=== PATIENT | female | born 1955 | race Caucasian/White ===

== ENCOUNTER 2018-09-26 07:51 | Inpatient (IN) | payer OTHER ==
--- NOTE | 2018-09-19 19:12 | HP ---
AMENDED REPORT NOW INCLUDES DESIGNATED COSIGNER HISTORY AND PHYSICAL: DATE OF ADMISSION/SURGERY: 09/26/18 DATE OF OFFICE VISIT: 09/19/18 ATTENDING SURGEON: Dr. Bennett.* (DICTATED BY JAYASHREE SALOMON) PROCEDURE: Right total knee arthroplasty. CHIEF COMPLAINT: Right knee pain. HISTORY OF PRESENT ILLNESS: Ms. Aquino is a 63-year-old female who has chronic history of right knee pain. She had a meniscal repair in November 2016. Since then, she has had significant indeterminate pain. Today she reports the pain as a 6/10 in the right knee. She is having difficulty standing and difficulty walking even half a block. She does take 2 hydrocodone per day plus anti-inflammatories. She has multiple reports of falls because the knee is giving out on her. At this point, she would like to proceed with surgery. PAST MEDICAL HISTORY: Osteoarthritis, mitral valve disorder, TIA, anxiety, [place], coronary artery disease, hypothyroidism, and COPD. PAST SURGICAL HISTORY: Right knee arthroscopy, partial thyroidectomy, appendectomy, tubal ligation. MEDICATIONS: 1. Zolpidem tartrate 5 mg 1 p.o. before bed. 2. Escitalopram oxalate 20 mg 1 p.o. daily. 3. Bupropion hydrochloride ER 300 mg 1 p.o. daily. 4. Clonazepam 1 mg 1 p.o. 3 times a day. 5. Ventolin HFA 108 mcg 1 to 2 inhalations every 4 hours as needed. 6. Amlodipine 5 mg 1 p.o. daily. 7. Symbicort 160/4.5 mcg 2 puffs by mouth twice a day. 8. Hydrocodone/acetaminophen 5/325 mg 1 p.o. every 6 hours as needed for pain. 9. Ipratropium bromide/albuterol sulfate 0.5/2.5 mcg per 3 mL 1 vial in nebulizer 3 times a day as needed. 10. Triamcinolone acetonide 0.1% apply thin film twice daily. 11. Tylenol extra strength 500 mg 2 p.o. as needed for pain. ALLERGIES: ZITHROMAX, SULFA ANTIBIOTICS, ESTROGENS, and LATEX. FAMILY HISTORY: Positive for diabetes, coronary artery disease, hypertension, stroke, scleroderma, and breast cancer. SOCIAL HISTORY: She is not currently working. She is applying for disability. She lives alone. She uses occasional glass of wine. She denies any tobacco or recreational drug use. Right hand dominant. REVIEW OF SYSTEMS: General: Negative for fevers, chills, night sweats, unexplained weight loss or gain. No known anesthesia problems. HEENT: Negative for headache, lightheadedness, syncopal episodes, visual changes. Integumentary: Negative for abrasions, lesions, open wounds. Cardiothoracic: Negative for hypertension, chest pain, palpitations, edema. Respiratory: Positive for chronic cough. Negative for shortness breath with exertion or wheezing. GI: Negative for nausea, vomiting, diarrhea, constipation, or GERD. : Negative for nocturia, urinary frequency, urgency, history of UTIs, kidney problems. Musculoskeletal: Positive for right knee pain. Negative for chronic or intermittent back pain or history of fractures. Neurologic: Positive for history of stroke, poor balance, anxiety, depression. Negative for numbness, tingling, or history of seizure. Endocrine: Positive for thyroid issues. Negative for diabetes. Hematologic: Negative for easy bruising, anemia , bleeding disorders, history of DVT. ID: Negative for history of MRSA infection, hep C, or HIV. PHYSICAL EXAMINATION GENERAL: Well-developed, well-nourished 63-year-old female, in no acute distress. VITAL SIGNS: Height 62 inches, weight 153 pounds. Pulse 70, BP 132/82, respirations 18, temperature 98.4, pain 7, BMI 27.8. HEENT: Normocephalic, atraumatic. PERRLA. Extraocular movements intact. Throat is clear. NECK: Supple. No palpable lymph nodes. PULMONARY: Lungs are clear to auscultation bilaterally. No wheezes, rales, or rhonchi. CARDIO: Regular rate and rhythm. S1 and S2 normal. No murmurs, rubs, or gallops. No edema. ABDOMEN: Positive bowel sounds, soft and nontender. NEUROLOGIC: A and O x3. Cranial nerves II through XII intact. Sensation to light touch is intact. MUSCULOSKELETAL: Right lower extremity: The patient's gait is antalgic, favoring the right knee. The patient's skin is intact without abrasions or open wounds. No palpable masses or lymph nodes. There is moderate effusion at the knee joint with extreme tenderness to palpation along the medial and lateral joint line. She has 20 to 100 degrees of flexion today with severe pain. She has significant quadriceps atrophy. No varus or valgus instability. Positive Apley's and Pamela's. No distal edema, varicosities, or hyperreflexia. She has 5/5 ankle dorsiflexion and plantarflexion strength. Full sensation to light touch in all nerve distributions and 2+ palpable DP pulse. DIAGNOSTIC STUDIES: Radiographs at multiple views of the patient's right knee show medial [id number] contact. There is significant tricompartmental osteophyte formation, subchondral sclerosis and joint space narrowing. IMPRESSION: Right knee severe osteoarthritis. PLAN: The patient is scheduled to undergo a right total knee arthroplasty with Dr. Bennett on 09/26/18. Dr. Bennett discussed the procedure as well as the risks and benefits with the patient and she agrees to proceed. She will return to the office 10 to 14 days postop for followup and suture removal. Upon discharge from the hospital, she will have a prescription e-scribed to her pharmacy for postoperative pain management. JAYASHREE OROZCO [id number]/[facility] #: [id number] BOB
[~2018-09-26 07:51] MED LIST: Buffered Lidocaine 1% SYRIN* 1 ML/SYRINGE INTRADERM ONE; Famotidine IV* 10 MG/ML 2 ML (20 mg) IV ONE; Gabapentin CAP(*) 300 MG PO ONE; Lactated Ringers 1000 ML Bag* 1,000 ML IV SCH
--- OUTSIDE RECORDS SUMMARY | 2018-09-26 07:55 | XMS REPORT | Continuity of Care Document ---
:1955 External Reference #:[id number] Author Name Tea Mirza Care Team Providers Name Role Phone Sveta Patel MD Primary Care Physician Unavailable Payers Date Identification Numbers Payment Provider Subscriber Policy Number: [id number] [facility] Gay Thompson Steven PayID: [id number] [address] [place] [address] Onset: 2006 Policy Number: [id number] [facility] Gay Jay Steven Group Number: [id number] [place]/o [place] Group Name: [id number] [address] PayID: [id number] [place] [address] Expires: 2015 Policy Number: [id number] [facility] Gay Harris PayID: [id number] [address] [address] [place] [address] PayID: [id number] Controverted Gay Harris Advance Directives Type Date Description Status Comment Other Directive 01/01/2017 [facility] Care Proxy Current and Verified Problems Active Problems Provider Date Anxiety state Sugar Patrick M.D. Onset: 11/02/2015 Transient cerebral ischemia Roldan Romano M.D. Onset: 11/02/2015 Mitral valve disorder Roldan Romano M.D. Onset: 11/02/2015 Pain in limb Lindsay Bennett M.D. Onset: 05/07/2016 Hamstring injury Lindsay Bennett M.D. Onset: 05/07/2016 Localized, primary osteoarthritis Lindsay Bennett M.D. Onset: 05/07/2016 Ganglion of shoulder Adarsh Sims MD Onset: 04/25/2018 Localized, secondary osteoarthritis of Adarsh Sims MD Onset: 04/25/2018 the shoulder region Family History Date Family Member(s) Observation Comments General Diabetes General Parkinson's Disease General Ovarian Cancer General Breast Cancer General Heart Disease General Hypertension General Stroke General Rheumatoid Arthritis General raynauds General Crest Father Stroke Multiple Father [place] (Age 45) Father Diabetes Type II Age 84 Mother due to scleroderma, () - Age 57 mesothelioma Siblings 3 1 Brother - age 27 murdered 1 Sister - TBI, global Age 61 1 Brother - TBI, unilateral, blind in an eye and deaf in 1 ear, Valve Disease, mitral valve replacement (age 54). Age 56 Social History Type Date Description Comments Sex Unknown Marital Status Lives With Alone Occupation Disabled ETOH Use Currently consumes alcohol 0 - 1 glasses Recreational Drug Use Never Used Drugs Tobacco Use Start: Unknown Light tobacco smoker (10 or fewer cigarettes/day) Smoking Status Reviewed: 09/17/18 Light tobacco smoker (10 or fewer cigarettes/day) Exercise Type/Frequency Exercises rarely Allergies, Adverse Reactions, Alerts Active Allergies Reaction Severity Comments Date Zithromax lorrie syndrome 10/13/2015 Sulfa Antibiotics rash 10/13/2015 Estrogens rash 10/13/2015 Medications Active Medications SIG Qnty Indications Ordering Date Provider Zolpidem Tartrate One po hs prn 30tabs G47.00 Siena Marsha, 09/02/2018 5mg sleep N.P. Tablets Cane use for ambulation 1units M25.561 Lindsay Bennett, 07/25/2018 Misc - r knee pain MObey Escitalopram Oxalate 1 by mouth every 30tabs F32.9 Siena Varn, 2018 day N.P. 20mg Tablets Bupropion 1 by mouth every 30tabs F32.9 Siena Varn, 06/03/2018 Hydrochloride ER (XL) day N.P. 300mg Tablets ER 24HR Clonazepam take 1 by mouth 60tabs F32.9 Siena Varn, 04/25/2018 1mg Tablets three times a day N.P. Ventolin HFA 1 to 2 inhalations 18units J45.31 Siena Varиван, 03/31/2018 every 4 hours as N.P. 108(90Base) mcg/Act needed Aerosol Amlodipine Besylate 1 by mouth every 90tabs I10 Siena Joиван, 03/31/2018 5mg day N.P. Tablets Symbicort 2 puffs by mouth 18gm J44.1 Siena Joиван, 12/19/2017 twice a day N.P. 160-4.5mcg/Act Aerosol Hydrocodone-Acetamino one tablet by 60tabs M25.561 Siena Joиван, 2017 phen mouth every 6 N.P. 5-325mg Tablets hours as needed for pain Ipratropium 1 vial in 180ml J44.1 Siena Joиван, 12/12/2017 [place]/Albuterol nebulizer three N.P. Sulfate times a day as needed for asthma 0.5-2.5(3)mg/3ML Solution Nebulizer use three times a 1units J44.1 Siena Joиван, 12/12/2017 Device day as needed N.P. Triamcinolone apply thin film 45units H60.541 Siena Joиван, 10/13/2015 Acetonide twice daily N.P. 0.1% Cream Tylenol Extra 2 by mouth as Unknown Strength needed 500mg Tablets History Medications Gabapentin 1 by mouth at 30caps G47.00 Siena Joиван, 07/25/2018 - 300mg Capsules bedtime N.P. 08/25/2018 Escitalopram Oxalate 1 by mouth 30tabs F32.9 Siena Joиван, 04/25/2018 - 10mg every day N.P. 06/17/2018 Tablets Alprazolam one by mouth up 20tabs Siena Joиван, 04/08/2018 - 0.25mg Tablets to three times N.P. 04/15/2018 daily as needed for anxiety Bupropion HCL ER (XL) 1 by mouth 30tabs F32.9 Siena Joиван, 03/31/2018 - every day N.P. 06/03/2018 150mg Tablets ER 24HR Clonazepam 1 tablet tid 30tabs F32.9 Siena Joиван, 03/31/2018 - 0.5mg Tablets prn anxiety N.P. 04/08/2018 Prednisone 4 tablets by 40tabs J45.31 Siena Joиван, 03/31/2018 - 10mg Tablets mouth for 4 N.P. 04/16/2018 days 3 tablets by mouth for 4 days 2 tablets by mouth for 4 days 1 tablet by mouth for 4 days Amoxicillin/Clavulanat one tablet by 20tabs J45.31 Siena Joиван, 2018 - e Potassium mouth twice N.P. 04/10/2018 875-125mg daily for 10 Tablets days Doxycycline Hyclate 1 po bid x 10 20tabs J44.1 Siena Marsha, 12/12/2017 - 100mg days N.P. 12/22/2017 Tablets Prednisone 4 tablets by 40tabs J44.1 Siena Larson, 12/12/2017 - 10mg Tablets mouth for 4 N.P. 12/28/2017 days 3 tablets by mouth for 4 days 2 tablets by mouth for 4 days 1 tablet by mouth for 4 days Ramipril 1 by mouth 30caps I10 Siena Larson, 02/05/2017 - 10mg Capsules every day N.P. 12/19/2017 Amlodipine Besylate 1 by mouth 30tabs I10 Siena Larson, 01/01/2017 - 5mg every day N.P. 02/05/2017 Tablets Atorvastatin Calcium take 1 tablet 90tabs E78.00 Siena Larson, 2016 - 20mg by mouth at N.P. 12/19/2017 Tablets bedtime Ranitidine HCL take one tablet 60tabs R11.2 Siena Larson, 09/21/2016 - 150mg by mouth twice N.P. 12/19/2017 Tablets a day Ondansetron HCL one by mouth 30tabs R11.2 Siena Larson, 09/21/2016 - 4mg every 8 hours N.P. 12/19/2017 Tablets as needed for nausea Vicodin take 1 by mouth 30tabs M25.50 James Thomas NP 09/21/2016 - 5-300mg Tablets every 8 hours 12/19/2017 as needed Voltaren apply 4 Gm to 100units Siena Larson, 07/24/2016 - 1% Gel affected area N.P. 09/21/2016 four times daily prn pain Chantix Starting Month take as 30tabs F17.210 Siena Marsha, 07/17/2016 - Jeff directed (0.5 N.P. 03/31/2018 0.5mg X 11 & 1 mg X mg by mouth 42 Tablets daily x3 days, 0.5 mg twice a day x 4 days, then 1 mg twice a day up to three months) Flector apply 1 patch 60units M17.11 Siena Larson, 07/17/2016 - 1.3% Patches twice a day N.P. 07/24/2016 Omeprazole 1 by mouth 30tabs Siena Larson, 06/12/2016 - 20mg Tablets every day N.P. 06/19/2016 Tramadol HCL 1 tab twice a 40tabs Siena Larson, 06/08/2016 - 50mg Tablets day as needed N.P. 07/24/2016 for pain Cyclobenzaprine HCL take one tablet 40tabs M25.561 Siena Larson, 2016 - 10mg by mouth every N.P. 12/19/2017 Tablets 8 hours as needed for muscle spasms, maximum daily dose=3 Augmentin one by mouth 20tabs Siena Larson, 04/24/2016 - 875-125mg every 12 hours N.P. 05/04/2016 Tablets for ten days Hydrocodone-Acetaminop one tablet by 30tabs M25.561 Siena Larson, 2016 - hen mouth at N.P. 12/19/2017 5-325mg Tablets bedtime Bupropion HCL ER (SR) 1po for 7 days 60tabs F17.210 Siena Larson, 2016 - and then 1 by N.P. 09/21/2016 150mg Tablets ER 12HR mouth twice a day Doxycycline Hyclate 1 tablets by 20tabs H66.92 Siena Larson, 04/23/2016 - 100mg mouth twice N.P. 04/24/[address] vasquez for 10 days. Clindamycin HCL one capsule by 40caps H60.91 James Thomas NP 02/03/2016 - 300mg mouth every 6 04/23/2016 Capsules hours for 10 days Prednisone 4 tablets by 40tabs R05 James Thomas NP 02/03/2016 - 10mg Tablets mouth for 4 04/23/2016 days 3 tablets by mouth for 4 days 2 tablets by mouth for 4 days 1 tablet by mouth for 4 days Prednisone 4 tablets by 40tabs H60.91 Siena Joиван, 01/12/2016 - 10mg Tablets mouth for 4 N.P. 01/28/2016 days 3 tablets by mouth for 4 days 2 tablets by mouth for 4 days 1 tablet by mouth for 4 days Clindamycin HCL one by mouth 30caps Siena Marsha, 01/12/2016 - 300mg three times a N.P. 01/22/2016 Capsules day x 10 days Cipro 1 by mouth 20tabs H62.41 Siena Marsha, 01/02/2016 - 500mg Tablets twice a day for N.P. 01/12/2016 10 days Vicodin take 1 by mouth 20tabs H62.41 Siena Marsha, 01/02/2016 - 5-300mg Tablets every 6 hours N.P. 02/03/2016 as needed Ambien one by mouth at 30tabs G47.09 Siena Marsha, 12/09/2015 - 5mg Tablets bedtime as N.P. 12/19/2017 needed for sleep mdd 1 Meloxicam 1/2 or 1 tablet 30tabs M25.561 Siena Marsha, 12/09/2015 - 15mg Tablets by mouth every N.P. 06/19/2016 day as needed pain Escitalopram Oxalate 1 by mouth 30tabs F41.9 Siena Larson, 11/02/2015 - 20mg every day N.P. 12/19/2017 Tablets Escitalopram Oxalate 1 by mouth 30tabs F41.9 Sugar Patrick, 10/13/2015 - 10mg every day M.D. 11/02/2015 Tablets Tobramycin 0.3% Oint 1/2 inch drops H00.012 Sugar Patrick, 10/13/2015 - every 4hours M.D. 10/13/2015 Oint Tobramycin 1/2 inch drops 5ml H00.012 Sugar Patrick, 10/13/2015 - 0.3% Solution every 4hours M.D. 02/03/2016 Melatonin 1 tab by mouth Unknown - 10mg Capsules every night prn 02/03/2016 Advil 4 tabs as Unknown - 200mg Tablets needed 02/03/2016 Clindamycin HCL take 1 capsule Unknown - 300mg by mouth three 02/03/2016 Capsules times a day for 10 days Prednisone take 4 tablets Unknown - 10mg Tablets once daily for 02/03/2016 4 days 3 tablets once daily for 4 d... Glucosamine Unknown - 09/21/2016 Acidophilus Unknown - 09/21/2016 Omeprazole 1 by mouth 30caps Siena Varn, - 40mg Capsules every day N.P. 12/19/2017 Pantoprazole Sodium 1 by mouth Unknown - 40mg every day 12/19/2017 Tablets Medications Administered in Office Medication SIG Qnty Indications Ordering Provider Date Triamcinolone (Kenalog) Lindsay Bennett M.D. 07/25/2018 Injection Triamcinolone (Kenalog) Adarsh Sims MD 04/25/2018 Injection Inj, Regadenoson, 0.1 MG Kody Cruz, DO FACC 01/08/2017 Injection Technetium TC 99M Kody Cruz, DO FAC 01/08/2017 Tetrofosmin, Per Unit Dose Up To 40 Millicuries Injection Depomedrol 40MG Lindsay Bennett M.D. 06/08/2016 Injection Depomedrol 80MG Mega Hanks M.D. 08/08/2012 Injection Immunizations CPT Code Status Date Vaccine Reaction Lot # [id number] Given 01/01/2017 Tdap - No immediate [id number] Tetanus/Diptheria/Acellular reaction... Pertussis 48580 Given 01/01/2017 Influenza Virus Vaccine, No immediate [id number] Quadrivalent, Split, reaction... Preservative Free Vital Signs Date Vital Result Comment 09/17/2018 10:38am Height 62 inches 5'2" Weight 154.00 lb Heart Rate 52 /min BP Systolic 138 mmHg BP Diastolic 84 mmHg Body Temperature 97.4 F O2 % BldC Oximetry 96 % BMI (Body Mass Index) 28.2 kg/m2 09/02/2018 3:53pm Height 62 inches 5'2" Weight 152.12 lb Heart Rate 76 /min BP Systolic 130 mmHg BP Diastolic 82 mmHg Body Temperature 97.3 F O2 % BldC Oximetry 99 % BMI (Body Mass Index) 27.8 kg/m2 08/25/2018 10:13am Height 62 inches 5'2" Weight 153.00 lb Heart Rate 71 /min BP Systolic 135 mmHg BP Diastolic 87 mmHg Body Temperature 97.9 F O2 % BldC Oximetry 99 % BMI (Body Mass Index) 28.0 kg/m2 07/25/2018 9:49am Height 62 inches 5'2" Weight 156.00 lb Heart Rate 64 /min BP Systolic Sitting 119 mmHg BP Diastolic Sitting 80 mmHg BMI (Body Mass Index) 28.5 kg/m2 07/25/2018 8:08am Height 62 inches 5'2" Weight 160.00 lb Heart Rate 64 /min BP Systolic 138 mmHg BP Diastolic 80 mmHg Respiratory Rate 16 /min Pain Level 6 BMI (Body Mass Index) 29.3 kg/m2 06/17/2018 9:47am Height 62 inches 5'2" Weight 152.25 lb Heart Rate 67 /min BP Systolic 128 mmHg BP Diastolic 80 mmHg Body Temperature 96.7 F O2 % BldC Oximetry 98 % BMI (Body Mass Index) 27.8 kg/m2 06/03/2018 9:58am Height 62 inches 5'2" Weight 149.00 lb Heart Rate 67 /min BP Systolic 140 mmHg BP Diastolic 88 mmHg Body Temperature 98.1 F O2 % BldC Oximetry 98 % BMI (Body Mass Index) 27.2 kg/m2 05/20/2018 11:05am Height 62 inches 5'2" Weight 149.25 lb Heart Rate 77 /min BP Systolic 142 mmHg BP Diastolic 86 mmHg Body Temperature 98.6 F O2 % BldC Oximetry 96 % BMI (Body Mass Index) 27.3 kg/m2 04/25/2018 10:51am Height 62 inches 5'2" Weight 140.00 lb Heart Rate 87 /min BP Systolic 128 mmHg BP Diastolic 88 mmHg Body Temperature 99.0 F O2 % BldC Oximetry 97 % BMI (Body Mass Index) 25.6 kg/m2 04/25/2018 9:50am Height 62 inches 5'2" Weight 148.00 lb BP Systolic 126 mmHg BP Diastolic 76 mmHg Respiratory Rate 20 /min Pain Level 7 BMI (Body Mass Index) 27.1 kg/m2 04/07/2018 3:05pm Height 62 inches 5'2" Weight 148.75 lb Heart Rate 77 /min BP Systolic Sitting 134 mmHg reg adult cuff left arm BP Diastolic Sitting 72 mmHg reg adult cuff left arm Respiratory Rate 20 /min Body Temperature 97.3 F O2 % BldC Oximetry 99 % at rest on room air BMI (Body Mass Index) 27.2 kg/m2 03/31/2018 3:19pm Height 62 inches 5'2" Weight 142.00 lb Heart Rate 102 /min BP Systolic 219 mmHg BP Diastolic 109 mmHg Body Temperature 98.4 F O2 % BldC Oximetry 97 % BMI (Body Mass Index) 26.0 kg/m2 12/19/2017 11:15am Height 62 inches 5'2" Weight 149.50 lb Heart Rate 79 /min BP Systolic 140 mmHg BP Diastolic 80 mmHg Body Temperature 98.5 F O2 % BldC Oximetry 97 % BMI (Body Mass Index) 27.3 kg/m2 12/12/2017 10:32am Height 62 inches 5'2" Weight 145.00 lb Heart Rate 65 /min BP Systolic 149 mmHg right arm sitting. BP Diastolic 83 mmHg right arm sitting. Body Temperature 97.8 F O2 % BldC Oximetry 100 % BMI (Body Mass Index) 26.5 kg/m2 02/05/2017 9:58am Weight 162.00 lb Heart Rate 70 /min BP Systolic Sitting 140 mmHg BP Diastolic Sitting 78 mmHg Body Temperature 97.8 F O2 % BldC Oximetry 96 % 01/01/2017 10:24am Height 62.5 inches 5'2.50" Weight 162.31 lb Heart Rate 95 /min BP Systolic 152 mmHg BP Diastolic 82 mmHg Body Temperature 98.5 F O2 % BldC Oximetry 98 % BMI (Body Mass Index) 29.2 kg/m2 09/21/2016 3:45pm Weight 164.00 lb Heart Rate 78 /min BP Systolic 180 mmHg BP Diastolic 106 mmHg Body Temperature 98.1 F O2 % BldC Oximetry 98 % 07/17/2016 4:29pm Weight 169.00 lb Heart Rate 80 /min BP Systolic Sitting 168 mmHg BP Diastolic Sitting 90 mmHg O2 % BldC Oximetry 97 % 06/08/2016 8:05am Height 63.5 inches 5'3.50" Weight 164.00 lb Heart Rate 72 /min BP Systolic 138 mmHg BP Diastolic 87 mmHg Respiratory Rate 18 /min Body Temperature 97.9 F Pain Level 8 BMI (Body Mass Index) 28.6 kg/m2 05/07/2016 10:39am Height 63.5 inches 5'3.50" Weight 164.00 lb Heart Rate 62 /min BP Systolic 130 mmHg BP Diastolic 82 mmHg Respiratory Rate 14 /min Pain Level 8 BMI (Body Mass Index) 28.6 kg/m2 04/23/2016 12:56pm Weight 168.00 lb w/boots Heart Rate 65 /min BP Systolic Sitting 138 mmHg BP Diastolic Sitting 82 mmHg Body Temperature 98.0 F O2 % BldC Oximetry 97 % 02/03/2016 10:05am Weight 159.00 lb Heart Rate 108 /min BP Systolic Sitting 156 mmHg BP Diastolic Sitting 90 mmHg Respiratory Rate 20 /min Body Temperature 99.0 F O2 % BldC Oximetry 95 % 01/12/2016 10:50am Weight 159.00 lb Heart Rate 76 /min BP Systolic Sitting 118 mmHg BP Diastolic Sitting 74 mmHg Respiratory Rate 15 /min Body Temperature 98.4 F O2 % BldC Oximetry 98 % 01/02/2016 1:11pm Weight 162.00 lb Heart Rate 76 /min BP Systolic Sitting 150 mmHg BP Diastolic Sitting 80 mmHg Respiratory Rate 15 /min Body Temperature 98.4 F O2 % BldC Oximetry 98 % 12/09/2015 10:38am Weight 161.00 lb with shoes Heart Rate 73 /min BP Systolic Sitting 140 mmHg BP Diastolic Sitting 70 mmHg O2 % BldC Oximetry 98 % 10/13/2015 12:52pm Height 63 inches 5'3" Weight 155.00 lb Heart Rate 65 /min BP Systolic Sitting 128 mmHg BP Diastolic Sitting 88 mmHg Body Temperature 97.2 F O2 % BldC Oximetry 97 % BMI (Body Mass Index) 27.5 kg/m2 Results Test Date Facility Test Result H/L Range Note Order 09/17/2018 [facility] EKG <pending> Rapid Influenza 02/06/2017 [facility] Influenza A NEGATIVE Negative 1 A & B Molecular [address] [place] [address] [phone] Influenza B Molecular NEGATIVE Negative Laboratory test 02/05/2017 [facility] Rapid Influenza SEE RESULT 2, [address] A [place] [address] [phone] CBC Auto Diff 01/01/2017 [facility] White Blood 8.3 10^3/uL N 3.5-[address] Count 0.8 [place] [address] [phone] Red Blood Count 4.66 10^6/uL N 4.0-5.4 Hemoglobin 14.8 g/dL N 12.0-16.0 Hematocrit 43 % N 35-47 Mean Corpuscular Volume 92 fL N 80-97 Mean Corpuscular Hemoglobin 32 pg High 27-31 Mean Corpuscular HGB Conc 35 g/dL N 31-36 Red Cell Distribution Width 14 % N 10.5-15 Platelet Count 294 10^3/uL N 150-450 Mean Platelet Volume 8 um3 N 7.4-10.4 Abs Neutrophils 4.2 10^3/uL N 1.5-7.7 Abs Lymphocytes 3.3 10^3/uL N 1.0-4.8 Abs Monocytes 0.5 10^3/uL N 0-0.8 Abs Eosinophils 0.2 10^3/uL N 0-0.6 Abs Basophils 0.1 10^3/uL N 0-0.2 Abs Nucleated RBC 0.01 10^3/uL N Granulocyte % 50.7 % N 38-83 Lymphocyte % 40.0 % N 25-47 Monocyte % 6.4 % N 1-9 Eosinophil % 2.1 % N 0-6 Basophil % 0.8 % N 0-2 Nucleated Red Blood Cells % 0.1 N HPV 16, 18/45 01/01/2017 [facility] HPV 16 Positive Abnormal Negative Genotype [address] [place] [address] [phone] HPV 18/45 Genotype Negative N Negative Laboratory test 01/01/2017 [facility] TSH (Thyroid 1.61 mcIU/mL N 0.34-5.[address] Stim Horm) [place] [address] [phone] Comp Metabolic 01/01/2017 [facility] Sodium 139 mmol/L N 133- [address] [place] [address] [phone] Potassium 4.8 mmol/L N 3.5-5.0 Chloride 105 mmol/L N 101-111 Co2 Carbon Dioxide 30 mmol/L N 22-32 Anion Gap 4 mmol/L N 2-11 Glucose 91 mg/dL N 70-100 Blood Urea Nitrogen 18 mg/dL N 6-24 Creatinine 0.77 mg/dL N 0.51-0.95 BUN/Creatinine Ratio 23.4 High 8-20 Calcium 9.5 mg/dL N 8.6-10.3 Total Protein 6.9 g/dL N 6.4-8.9 Albumin 4.3 g/dL N 3.2-5.2 Globulin 2.6 g/dL N 2-4 Albumin/Globulin Ratio 1.7 N 1-3 Total Bilirubin 0.30 mg/dL N 0.2-1.0 Alkaline Phosphatase 72 U/L N 34-104 Alt 16 U/L N 7-52 Ast 16 U/L N 13-39 Egfr Non- 76.7 N >60 Egfr 98.7 N >60 4 Laboratory test 01/01/2017 [facility] Cytology SEE RESULT BELOW [address] [place] [address] [phone] HPV Rna Ww/Reflex Genotype POSITIVE Abnormal Negative 6 Laboratory test 12/31/2016 [facility] Glucose 90 mg/dL N 70- 100 [address] [place] [address] [phone] Lipid Profile 12/31/2016 [facility] Triglycerides 120 mg/dL N 8 (Trig/Chol/HDL) [address] [place] [address] [phone] Cholesterol 263 mg/dL N 9 HDL Cholesterol 53.8 mg/dL N 10 LDL Cholesterol 185 mg/dL N 11 Laboratory test 09/24/2016 [facility] Erythrocyte Sed 23 mm/Hr N 0-[address] [place] [address] [phone] C Reactive Protein 5.43 mg/L High < 5.00 12 Anti Nuclear Antibody 0.4 U N 13 Nuclear AB (Charla) By Ifa Igg <1:80 (Negative) N 14 Lyme Disease Serology Negative N Negative 15 Cyclic Citrullinated Pep Igg <15.6 U N 16 Vitamin D Total 25(Oh) 26.9 ng/mL Low 30-50 Rheumatoid Factor <15 IU/mL N <15 17 Urine Culture And 07/17/2016 [facility] Urine Culture SEE RESULT [address] [place] [address] [phone] Ua Routine 07/17/2016 [facility] Ua Specific 1.010 [place] Ua PH 7 Ua Color yellow Ua Appera clear Ua WBC trace Ua Protein neg. Ua Glucose normal Ua Ketones neg. Ua Bilirubin neg. Ua Urobilinogen normal Ua Nitrite neg. Ua Occult Blood trace Laboratory test 07/12/2016 [facility] Cytology SEE RESULT [address] Non-Heavy [employer] [place] [address] [phone] Laboratory test 06/19/2016 [facility] Clotest SEE RESULT [address] [place] [address] [phone] Laboratory test 06/19/2016 [facility] Surgical SEE RESULT [address] Interface [place] [address] [phone] Laboratory test 05/28/2016 [facility] TSH (Thyroid 1.35 mcIU/mL N 0.34-[address] Stim Horm) .[address] [place] [address] [phone] [employer]room Picker: [id number] 3 SEE RESULT BELOW Name: STEVENGAY J : [address]: Siena Larson NP Acct: [id number] Unit: [id number] AGE: 61 Location: [facility] Re02/05/17 SEX: F Status: REG REF SPEC: [id number] KIMMY: 02/05/17-[address]: Siena Larson NP REQ: [id number] RECD: 02/06/176 STATUS: COMP _ SOURCE: [facility]: ORDERED: Flu A B Request COMMENTS: [id number] Procedure Result Reported Site Rapid Influenza A B Request Final 02/06/17- 1302 ML Specimen received for Influenza A/B Molecular testing * ML - MAIN LAB ([facility]) . END OF REPORT * ML=Testing performed at Main Lab DEPARTMENT OF PATHOLOGY, [address] [place] [address] Ayush Melendez M.D. Director [facility] # [id number] 4 Because ethnic data is not always readily available, this report includes an eGFR for both -Americans and non- Americans. The National Kidney Disease Education Program (NKDEP) does not endorse the use of the MDRD equation for patients that are not between the ages of 18 and 70, are , have extremes of body size, muscle mass, or nutritional status, or are non- or non-. According to the National Kidney Foundation, irrespective of diagnosis, the stage of the disease is based on the level of kidney function: Stage Description GFR(mL/min/1.73 m(2)) 1 Kidney damage with normal or decreased GFR 90 2 Kidney damage with mild decrease in GFR 60-89 3 Moderate decrease in GFR 30-59 4 Severe decrease in GFR 15-29 5 Kidney failure <15 (or dialysis) 5 SEE RESULT BELOW Name: GAY HARRIS : [address]: Siena Larson NP Acct: [id number] Unit: [id number] AGE: 61 Location: [facility] Re01/01/17 SEX: F Status: REG REF SPEC: [id number] KIMMY: 01/01/[address] [facility] [address]: Siena Larson NP REQ: [id number] RECD: 01/01/17 STATUS: SOUT _ ORDERED: TP IMAGE ANAL, HPV/Thin Prep, HPV 16/18 GENE COMMENTS: [id number] FINAL DIAGNOSIS Negative for Intraepithelial lesion or Malignancy A. Ectocervical/Endocervical Specimen Adequacy: Satisfactory of evaluation Transformation zone component identified Patient Information: HPV: High risk HPV RNA testing regardless of pap results. HPV 16/18 Genotype Reflex Actual Specimen Date: 10/24/17 LMP If Unknown: age 50+/- Spec Date if unknown: unknown ?: N Post Menopausal?: Y Hysterectomy?: N Previous Abnormal Pap Smears?:N Date Time Test Result Flag (u) Normal Range 01/01/17 1217 HPV RNA RFLX GE POSITIVE H Negative The high-risk HPV types detected by the assay include: 16, 18, 31, 33, 35, 39, 45, 51, 52, 56, 58, 59, 66, and 68. Signed (signature on file) CLIVE Restrepo(ASC) 01/03 1036 This Pap test was evaluated with the assistance of the [employer] Test Imaging System. Due to cytologic findings at the felter tennis balls microscope, comprehensive manual rescreening by a Tier Over may be required. The Pap Smear is a screening test designed to aid in the detection of premalignant and malignant conditions of the uterine cervix. It is not a diagnostic procedure and should not be used as the sole means of detecting cervical cancer. Both false- positive and false- negative reports do occur. Depending on your risk status, a Pap smear should be obtained and evaluated every 1-3 years. END OF REPORT * ML=Testing performed at Main Lab DEPARTMENT OF PATHOLOGY, [address] [place] [address] RUN DATE: 01/03/17 [facility] LAB LIVE PAGE 1 Patient: GAY HARRIS [id number] (Continued) Ayush Melendez M.D. Director [facility] # [id number] 6 The high-risk HPV types detected by the assay include: 16, 18, 31, 33, 35, 39, 45, 51, 52, 56, 58, 59, 66, and 68. 7 FASTING 10 HOUR 8 Desirable: <150 Borderline High: 150-199 High: 200-499 Very High: >500 9 Desirable: <200 Borderline High: 200-239 High: >239 10 Low: <40 Desirable: 40-60 High: >60 11 Desirable: <100 Near Optimal: 100-129 Borderline High: 130-159 High: 160-189 Very High: >189 12 Acute inflammation: >10.00 13 REFERENCE VALUE <=1.0 (Negative) Test Performed by: [address] [id number] 14 <1:80 (Negative) REFERENCE VALUE <1:80 (Negative) Test Performed by: [address] [id number] 15 Serologic response to B. burgdorferi infection is not detected, but cannot rule out early infection during which low or undetectable antibody levels to B. burgdorferi may be present. If clinically indicated, a new serum specimen should be submitted in 7-14 days. Test Performed by: [address] [id number] REFERENCE VALUE <20.0 (Negative) Test Performed by: [address] [id number] Test Performed by: [address] [id number] 18 SEE RESULT BELOW Name: GAY HARRIS : [address]: Siena Larson NP Acct: [id number] Unit: [id number] AGE: 61 Location: [facility] Re07/17/16 SEX: F Status: REG REF SPEC: [id number] KIMMY: 07/17/[address]: Siena Larson NP REQ: [id number] RECD: 07/17/16 STATUS: COMP _ SOURCE: URINE SPDESC: ORDERED: Urine Culture COMMENTS: [id number] Urine Source: Random Procedure Result Reported Site Urine Culture Final 07/19/16- 841 ML No Growth (<1,000 CFU/mL) * ML - MAIN LAB ([facility]) . END OF REPORT * ML=Testing performed at Main Lab DEPARTMENT OF PATHOLOGY, [address] [place] [address] Ayush Melendez M.D. Director [facility] # [id number] 19 SEE RESULT BELOW Name: GAY HARRIS : [address]: Kevin Valle MD Acct: [id number] Unit: [id number] AGE: 61 Location: THYROID Re07/12/16 SEX: F Status: REG REF SPEC: [id number] KIMMY: 07/12/16-[address] [facility] [address]: Kevin Valle MD REQ: [id number] RECD: 07/12/16 STATUS: HAWK KAUFMAN DR: Sveta Harvey MD _ ORDERED: FNA-IMG GUID BX/3, CYTO ADEQ-1ST P/3 FINAL DIAGNOSIS 1) Thyroid, left inferior, Ultrasound guided, fine needle aspiration: Benign thyroid nodule-colloid/hyperplastic (Crockett class II). 2) Thyroid, left mid anterior, Ultrasound guided, fine needle aspiration: Benign thyroid nodule-involutional type (Crockett class II). 3) Thyroid, left mid, Ultrasound guided, fine needle aspiration: Benign thyroid nodule-colloid/hyperplastic (Crockett class II). 1) The specimen demonstrates abundant watery colloid, an abundant amount of benign appearing follicular epithelium arranged in uniform sheets, medium sized follicles and only occasional small groups. No features of papillary carcinoma are seen. In this clinical setting the risk of malignancy is less than 3%. Clinical management of this thyroid nodule should be based on clinical and radiographic features as well CONTINUED ON NEXT PAGE * ML=Testing performed at Main Lab DEPARTMENT OF PATHOLOGY, [address], [place], [place] [address] Ayush Melendez M.D. Director [facility] # [id number] RUN DATE: 07/13/16 [facility] LAB LIVE PAGE 2 Patient: GAY HARRIS Jay [id number] (Continued) SPECIMEN COMMENTS (Continued) as the above. 2) The specimen demonstrates abundant watery proteinaceous fluid, a abundant amount of benign appearing follicular epithelium arranged in uniform sheets, medium sized follicles and only occasional small groups. Abundant pigmented and non-pigmented macrophages are seen in the background. No features of papillary carcinoma are seen. In this clinical setting the risk of malignancy is less than 3%. Clinical management of this thyroid nodule should be based on clinical and radiographic features as well as the above findings. 3) The specimen demonstrates abundant watery colloid, an abundant amount of benign appearing follicular epithelium arranged in uniform sheets, medium sized follicles and only occasional small groups. No features of papillary carcinoma are seen. In this clinical setting the risk of malignancy is less than 3%. Clinical management of this thyroid nodule should be based on clinical and radiographic features as well as the above. 1. THYROID LEFT - US GUIDED FINE NEEDLE ASPIRATION, 2. THYROID LEFT - US GUIDED FINE NEEDLE ASPIRATION, 3. THYROID LEFT - US GUIDED FINE NEEDLE ASPIRATION CLINICAL HISTORY 1) Left inferior nodule-3.4x 2.3x 2.0cm 2) Left mid- anterior-2.8x1.6x.6cm 3) Left mid -3.0x1.3x1.9cm IMMEDIATE INTERPRETATION 1) Pass 1-adequate 2) Pass 1-adequate 3) Pass 1-adequate GROSS DESCRIPTION 1) 1 - alcohol fixed slide(s) 1- passes 2) 3 - alcohol fixed slide(s) 1 - passes 3) 1 - alcohol fixed slide(s) 1 - passes CONTINUED ON NEXT PAGE * ML=Testing performed at Main Lab DEPARTMENT OF PATHOLOGY, [address] [place] [address] Ayush Melendez M.D. Director [facility] # [id number] RUN DATE: 07/13/16 [facility] LAB LIVE PAGE 3 Patient: GAY HARRIS [id number] (Continued) GROSS DESCRIPTION (Continued) Signed (signature on file) Precious Whiting MD 07/25 2660 END OF REPORT * ML=Testing performed at Main Lab DEPARTMENT OF PATHOLOGY, [address] [place] [address] Ayush Melendez M.D. Director [facility] # [id number] 20 SEE RESULT BELOW Name: GAY HARRIS : [address]: Rob Pantoja MD Acct: [id number] Unit: [id number] AGE: 61 Location: ENDO Re06/19/16 SEX: F Status: REG REF SPEC: [id number] KIMMY: 06/19/[address] [facility] [address]: Rob Pantoja MD REQ: [id number] RECD: 06/19/16 STATUS: STANLEY KAUFMAN DR: Siena Larson HYDRAULIC STRAINER OPERATOR _ SOURCE: GAS ANTRUM SPDESC: ORDERED: Clotest Procedure Result Reported Site Clotest Final 06/20/16- 0749 ML Clotest Negative * ML - MAIN LAB ([facility]) . END OF REPORT * ML=Testing performed at Main Lab DEPARTMENT OF PATHOLOGY, [address] [place] [address] Ayush Melendez M.D. Director [facility] # [id number] 21 SEE RESULT BELOW Name: GAY HARRIS : [address]: Rob Pantoja MD Acct: [id number] Unit: [id number] AGE: 61 Location: ENDO Re06/19/16 SEX: F Status: DEP REF SPEC: [id number] KIMMY: 06/19/[address] [facility] [address]: Rob Pantoja MD REQ: [id number] RECD: 06/19/16 STATUS: HAWK KAUFMAN DR: Siena Larson HYDRAULIC STRAINER OPERATOR _ ORDERED: KERATIN STAIN, LEVEL IV, HP-ADD FINAL DIAGNOSIS Stomach, antrum, biopsy: -- Severe chronic active gastritis with ulceration. -- No Helicobacter pylori-like organisms are identified. See comment. -- No evidence of neoplasia is identified. Comment: An immunohistochemical stain for pankeratin with appropriate control was performed to rule out occult infiltrative epithelial malignancy and is negative. An immunohistochemical stain for Helicobacter pylori-like organisms was performed with appropriate controls and is likewise negative. CLINICAL HISTORY Appetite and weight no change. December 2015 food comes up 4-5 times per day PRE-OPERATIVE DIAGNOSIS POST-OPERATIVE DIAGNOSIS Larynx - narrow, symmetric; esophagus - smooth 16-34 then erosions and ring at 361/2 , hiatus 38, small hiatal hernia; stomach - shallow ulcer at mid antrum, biopsied; duodenum - normal. Conclusions/Plan: Hiatal hernia, gastroesophageal reflux disease with stricture, dilated, increase Prilosec; gastric ulcer; dysphagia GROSS DESCRIPTION The specimen is received in formalin labeled, Biopsy Gastric Antral Ulcer, and consists of a 0.5 x 0.4 by up to 0.2 cm aggregate of uribe-pink irregular soft tissue fragments, which is submitted entirely in one cassette. CONTINUED ON NEXT PAGE * ML=Testing performed at Main Lab DEPARTMENT OF PATHOLOGY, [address] [place] [address] Ayush Melendez M.D. Director [facility] # [id number] RUN DATE: 06/21/16 [facility] LAB LIVE PAGE 2 Patient: GAY HARRIS [id number] (Continued) GROSS DESCRIPTION (Continued) Signed (signature on file) Ayush Melendez MD 1442 END OF REPORT * ML=Testing performed at Main Lab DEPARTMENT OF PATHOLOGY, [address] [place] [address] Ayush Melendez M.D. Director [facility] # [id number] Procedures Date Code Description Status 09/17/2018 63635 EKG Tracing & Interpretation Completed 07/25/2018 Inject/Drain Joint/Bursa Major W/O US Completed 04/25/2018 Inj/Aspir, Intermediate Joint/Bursa W/ US Completed 01/08/2017 51757 Stress Test Completed 01/08/2017 00036 Myocardial Perfusion Imaging Tomographic (Spect) Completed Multiple Studies 01/01/2017 EKG Tracing & Interpretation Completed 06/08/2016 Inject/Drain Joint/Bursa Major W/O US Completed 05/18/2016 22444050 Mammogram Completed 04/23/2016 68285 Remove Impacted Cerumen Completed 04/23/2016 33198 Remove Impact Cerumen Irrigati Completed 08/08/201280124 Inject/Drain Joint/Bursa Major W/O US Completed 08/08/2012 71023 Rad Exam; Knee, Ap&L Completed 08/08/2012 82303 Xray Knee 3 Views Completed 03/11/2009 453499658 Diabetic Retinal Eye Exam Completed 04/15/2007 48378 Color Flow Doppler/Interp & Reprt Completed 04/15/2007 81276 Color Flow Doppler/Interp & Reprt Completed 04/15/2007 94885 Pulse Wave/Continuous-Interp.RPT Completed 04/15/2007 66413 Echocardiography, Transesophageal, Real Time W/Image Completed 2D W/W/O M-M 04/15/2007 87606 Echocardiography, Transesophageal, Real Time W/Image Completed 2D W/W/O M-M 03/11/1995 89500722 Colonoscopy Completed Encounters Type Date Location Provider Dx Diagnosis Office Visit 09/02/2018 [facility] Internal Siena Larson, Loretta3.9 Major depressive 3:40p Medicine - Ccmob N.P. disorder, recurrent, unspecified G47.00 Insomnia, unspecified Office Visit 08/25/2018 10:00a [facility] Internal Siena Larson F33.9 Major depressive Medicine - N.P. disorder, Ccmob recurrent, unspecified R41.0 Disorientation, unspecified R26.0 Ataxic gait M25.561 Pain in right knee G47.00 Insomnia, unspecified Z12.31 Encntr screen mammogram for malignant neoplasm of breast Office Visit 07/25/2018 10:40a [facility] Internal Siena Larson F33.9 Major depressive Medicine - N.P. disorder, Ccmob recurrent, unspecified G47.00 Insomnia, unspecified Office Visit 07/25/2018 8:15a [facility] Lindsay Bennett, M25.561 Pain in right Of C.M.A. M.D. knee M25.461 Effusion, right knee M17.31 Unilateral post-traumatic osteoarthritis, right knee Office Visit 06/17/2018 10:00a [facility] Marsha Larson F33.9 Major depressive Medicine - Ccmob N.P. disorder, recurrent, unspecified Office Visit 06/03/2018 10:00a [facility] Internal Siena Larson F32.9 Major depressive Medicine - Ccmob N.P. disorder, single episode, unspecified Office Visit 05/20/2018 11:00a [facility] Internal Siena Larson, F32.9 Major depressive Medicine - Ccmob N.P. 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 disorder, single episode, unspecified I10 Essential (primary) hypertension J06.9 Acute upper respiratory infection, unspecified Office Visit 04/07/2018 3:00p [facility] Internal Siena Larson, F32.9 Major depressive Medicine - N.P. disorder, single Ccmob episode, unspecified I10 Essential (primary) hypertension J45.31 Mild persistent asthma with (acute) exacerbation M25.512 Pain in left shoulder Office Visit 03/31/2018 3:00p [facility] Internal Siena Larson, F32.9 Major depressive Medicine - N.P. disorder, single Ccmob episode, unspecified J45.31 Mild persistent asthma with (acute) exacerbation I10 Essential (primary) hypertension M25.512 Pain in left shoulder Office Visit 12/19/2017 11:00a [facility] Internal Siena Larson, J44.1 Chronic obstructive Medicine - N.P. pulmonary disease w Ccmob (acute) exacerbation M25.561 Pain in right knee E04.2 Nontoxic multinodular goiter R03.0 Elevated blood-pressure reading, w/o diagnosis of htn Office Visit 12/12/2017 10:40a [facility] Internal Siena Larson, J44.1 Chronic obstructive Medicine - N.P. pulmonary disease w Ccmob (acute) exacerbation F17.218 Nicotine dependence, cigarettes, w oth disorders E04.1 Nontoxic single thyroid nodule Office Visit 02/05/2017 10:00a [facility] Internal Siena Larson, I10 Essential ( primary) Medicine - Ccmob N.P. hypertension E78.00 Pure hypercholesterolemia, unspecified R53.81 Other malaise Office Visit 01/01/2017 10:40a [facility] Internal Siena Larson, Z00.01 [facility] abnormal findings I10 Essential (primary) hypertension E78.00 Pure hypercholesterolemia, unspecified E04.2 Nontoxic multinodular goiter F17.210 Nicotine dependence, cigarettes, uncomplicated F41.9 Anxiety disorder, unspecified Z12.11 Encounter for screening for malignant neoplasm of colon R07.9 Chest pain, unspecified R21 Rash and other nonspecific skin eruption Z23 Encounter for immunization K21.9 Gastro-esophageal reflux disease without esophagitis Z11.51 Encounter for screening for human papillomavirus (HPV) Office Visit 09/21/2016 3:40p [facility] Internal Siena Larson, M25.50 Pain in Medicine - N.P. unspecified joint Ccmob R11.2 Nausea with vomiting, unspecified Office Visit 07/17/2016 4:20p [facility] Internal Siena Larson, R53.83 Other fatigue [facility] M17.11 Unilateral primary osteoarthritis, right knee R30.0 Dysuria F17.210 Nicotine dependence, cigarettes, uncomplicated Office Visit 06/08/2016 8:15a [facility] Lindsay Bennett, M25.561 Pain in right Of C.M.A. M.D. knee M79.651 Pain in right thigh S76.301A Unsp inj msl/fasc/tnd post grp at thi lev, right thigh, init M17.11 Unilateral primary osteoarthritis, right knee Office Visit 05/07/2016 10:30a [facility] Lindsay Bennett, M25.561 Pain in right Of C.M.A. M.D. knee M79.651 Pain in right thigh S76.301A Unsp inj msl/fasc/tnd post grp at thi lev, right thigh, init M17.11 Unilateral primary osteoarthritis, right knee Office Visit 02/03/2016 10:00a [facility] R05 Cough H60.91 Unspecified otitis externa, right ear Office Visit 01/12/2016 11:00a [facility] Internal Siena Larson, H60.91 Unspecified otitis Medicine - N.P. externa, [facility] 01/02/2016 1:20p [facility] Internal Siena Larson, H60.11 Cellulitis of Medicine - N.P. right external ear Ccmob H62.41 Otitis externa in oth diseases classd elswhr, right ear H60.91 Unspecified otitis externa, right ear Office Visit 12/09/2015 11:00a [facility] Internal Siena Joиван, F32.9 Major depressive Medicine - N.P. disorder, single Ccmob episode, unspecified M25.561 Pain in right knee G47.09 Other insomnia Office Visit 10/13/2015 12:40p [facility] Internal Sugar Patrick, H60.541 Acute eczematoid Medicine - M.D. otitis externa, Ccmob right ear H00.012 Hordeolum externum right lower eyelid F41.9 Anxiety disorder, unspecified Office Visit 09/15/2012 3:15p [facility]opedic Mega Hanks, 716.96 Arthropathy Unspec Services Of M.D. Lower Leg C.M.A. Office Visit 08/08/2012 10:30a [facility]opedic Mega Hanks, 844.9 Sprains & Strains Services Of M.Daniel Knee & Leg Unspec C.M.A. 716.96 Arthropathy Unspec Lower Leg 727.51 Cyst Synovial Popliteal Space V72.5 Examination Radiological NEC Plan of Treatment Future Appointment(s):10/29/2018 10:00 am - Siena Larson N.P. at [facility] Internal Medicine - [facility]09/26/2018 10:30 am - Korey Chong PA-C at [facility]09/26/2018 10:30 am - JAYASHREE Pacheco at [facility]09/26/2018 10:30 am - Lindsay Bennett M.D. at [facility]09/19/2018 1:00 pm - Lindsay Bennett M.D. at [facility]09/17/2018 - Siena Larson N.P.Z01.818 Encounter for other preprocedural examinationNew Xrays:Chest PA & Lat 2 VWS, Ordered: 09/17/18Comments:I am ordering some routine preoperative lab work. The office will contact you with your results. Youmay take all of your usual medications the morning of your surgery, unless your surgeon tells you otherwise. Please stop taking Aspirin, or Aspirin like products for 1 week prior to your surgery.M17.11 Unilateral primary osteoarthritis, right kneeF33.9 Major depressive disorder, recurrent, eilhxqjxkobN20 Essential (primary) krelaxyubkblU39.9 Type 2 diabetes mellitus without hrptfiywvmpusX53.30 Mild persistent asthma, uncomplicated
--- OUTSIDE RECORDS SUMMARY | 2018-09-26 07:55 | XMS REPORT | Continuity of Care Document ---
:1955 External Reference #:[id number] Author Name Caro Casanova Care Team Providers Name Role Phone Sveta Patel MD Primary Care Physician Unavailable Payers Date Identification Numbers Payment Provider Subscriber Expires: 2018 Policy Number: [id number] [facility] Gay Jay Steven PayID: [id number] [address] [place] [address] Onset: 2006 Policy Number: [id number] [facility] Gay Jay Stveen Group Number: [id number] C/o [facility].[place] Group Name: [id number] [address] PayID: [id number] [place] [address] Expires: 2015 Policy Number: [id number] [facility] BERNADETTE Gay Harris PayID: [id number] [address] [address] [place] [address] PayID: [id number] Controverted Gay Harris Advance Directives Type Date Description Status Comment Other Directive 01/01/2017 [facility] Care Proxy Current and Verified Problems Active [...] raynauds General Crest Father Stroke Multiple Father MA (Age 45) Father Diabetes Type II Age [...] (10 or fewer cigarettes/day) Smoking Status Reviewed: 09/19/18 Light tobacco smoker (10 or fewer cigarettes/day) Exercise Type/Frequency Exercises rarely Allergies, Adverse Reactions, Alerts Active Allergies Reaction Severity Comments Date Zithromax lorrie syndrome 10/13/2015 Sulfa Antibiotics rash 10/13/2015 Estrogens rash 10/13/2015 Medications Active Medications SIG Qnty Indications Ordering Date Provider Zolpidem Tartrate One po hs prn 30tabs G47.00 Siena Varn, 09/02/2018 5mg sleep N.P. Tablets Cane use for ambulation 1units M25.561 Lindsay Bennett, 07/25/2018 Misc - r knee pain Lenore Escitalopram Oxalate 1 by mouth every 30tabs F32.9 Siena Varn, 2018 day N.P. 20mg Tablets Bupropion 1 by mouth every 30tabs F32.9 Siena Varn, 06/03/2018 Hydrochloride ER (XL) day N.P. 300mg Tablets ER 24HR Clonazepam take 1 by mouth 60tabs F32.9 Siena Varn, 04/25/2018 1mg Tablets three times a day N.P. Ventolin HFA 1 to 2 inhalations 18units J45.31 Siena Varn, 03/31/2018 every 4 hours as N.P. 108(90Base) [...] vial in 180ml J44.1 Siena Joиван, 12/12/2017 [place]/Albuterol nebulizer three N.P. Sulfate times a day [...] Clonazepam 1 tablet tid 30tabs F32.9 Siena Marsha, 03/31/2018 - 0.5mg Tablets prn anxiety N.P. [...] po bid x 10 20tabs J44.1 Siena Larson, 12/12/2017 - 100mg days N.P. 12/22/2017 Tablets [...] Prednisone 4 tablets by 40tabs H60.91 Siena Marsha, 01/12/2016 - 10mg Tablets mouth for 4 N.P. 01/28/2016 days 3 tablets by mouth for 4 days 2 tablets by mouth for 4 days 1 tablet by mouth for 4 days Clindamycin HCL one by mouth 30caps Siena Larson, 01/12/2016 - 300mg three times a N.P. 01/22/2016 Capsules day x 10 days Cipro 1 by mouth 20tabs H62.41 Siena Larson, 01/02/2016 - 500mg Tablets twice a day for N.P. 01/12/2016 10 days Vicodin take 1 by mouth 20tabs H62.41 Siena Larson, 01/02/2016 - 5-300mg Tablets every 6 hours N.P. 02/03/2016 as needed Ambien one by mouth at 30tabs G47.09 Siena Larson, 12/09/2015 - 5mg Tablets bedtime as N.P. 12/19/2017 needed for sleep mdd 1 Meloxicam 1/2 or 1 tablet 30tabs M25.561 Siena Larson, 12/09/2015 - 15mg Tablets by mouth every [...] Code Status Date Vaccine Reaction Lot # [id number] Given 01/01/2017 Tdap - No immediate [id number] Tetanus/Diptheria/Acellular reaction... Pertussis 59187 Given 01/01/2017 Influenza Virus Vaccine, No immediate [id number] Quadrivalent, Split, reaction... Preservative Free Vital Signs Date Vital Result Comment 09/19/2018 1:31pm Height 62 inches 5'2" Weight 152.00 lb Heart Rate 70 /min BP Systolic 132 mmHg BP Diastolic 82 mmHg Respiratory Rate 18 /min Body Temperature 98.4 F Pain Level 7 BMI (Body Mass Index) 27.8 kg/m2 09/17/2018 10:38am Height 62 inches 5'2" Weight [...] Test Result H/L Range Note Order 09/17/2018 [facility] In-House EKG <pending> Rapid Influenza 02/06/2017 [facility] Influenza A NEGATIVE Negative 1 A & B Molecular [address] [place] [address] [phone] Influenza B Molecular NEGATIVE Negative Laboratory test 02/05/2017 [facility] Rapid Influenza SEE RESULT 2, [address] [place] [address] [phone] CBC Auto Diff 01/01/2017 [facility] White Blood 8.3 10^3/uL N 3.5-[address] Count 0.8 [place] [address] [phone] Red Blood Count 4.66 10^6/uL N 4.0-5.4 [...] % 0.1 N HPV 16, 18/45 01/01/2017 [facility] HPV 16 Positive Abnormal Negative Genotype [address] [place] [address] [phone] HPV 18/45 Genotype Negative N Negative Laboratory test 01/01/2017 [facility] TSH (Thyroid 1.61 mcIU/mL N 0.34-5.[address] Stim Horm) [place] [address] [phone] Comp Metabolic 01/01/2017 [facility] Sodium 139 mmol/L N 133- [address] [address] [phone] Potassium 4.8 mmol/L N 3.5-5.0 Chloride 105 [...] 98.7 N >60 4 Laboratory test 01/01/2017 [facility] Cytology SEE RESULT BELOW 5 finding [address] [place] [address] [phone] HPV Rna Ww/Reflex Genotype POSITIVE Abnormal Negative 6 Laboratory test 12/31/2016 [facility] Glucose 90 mg/dL N 70- 100 7 finding [address] [place] [address] [phone] Lipid Profile 12/31/2016 [facility] Triglycerides 120 mg/dL N 8 (Trig/Chol/HDL) [address] [place] [address] [phone] Cholesterol 263 mg/dL N 9 HDL Cholesterol 53.8 mg/dL N 10 LDL Cholesterol 185 mg/dL N 11 Laboratory test 09/24/2016 [facility] Erythrocyte Sed 23 mm/Hr N 0-[address] [place] [address] [phone] C Reactive Protein 5.43 mg/L High < 5.00 12 Anti Nuclear Antibody 0.4 U N 13 Nuclear AB (Charla) By Ifa Igg <1:80 (Negative) N 14 Lyme Disease Serology Negative N Negative 15 Cyclic Citrullinated Pep Igg <15.6 U N 16 Vitamin D Total 25(Oh) 26.9 ng/mL Low 30-50 Rheumatoid Factor <15 IU/mL N <15 17 Urine Culture And 07/17/2016 [facility] Urine Culture SEE RESULT [address] [place] [address] [phone] Ua Routine 07/17/2016 [facility] In House Ua Specific 1.010 [place] Ua PH 7 Ua Color yellow Ua Appera clear Ua WBC trace Ua Protein neg. Ua Glucose normal Ua Ketones neg. Ua Bilirubin neg. Ua Urobilinogen normal Ua Nitrite neg. Ua Occult Blood trace Laboratory test 07/12/2016 [facility] Cytology SEE RESULT [address] [employer] [place] [address] [phone] Laboratory test 06/19/2016 [facility] Clotest SEE RESULT [address] [place] [address] [phone] Laboratory test 06/19/2016 [facility] Surgical SEE RESULT [address] [place] [address] [phone] Laboratory test 05/28/2016 [facility] TSH (Thyroid 1.35 mcIU/mL N 0.34-[address] [place]orm) .[address] [place] [address] [phone] 1 Dish Up Person: [id number] SEE RESULT BELOW Name: GAY HARRIS : [address]: Siena Larson NP Acct: [id number] Unit: [id number] AGE: 61 Location: [facility] Re02/05/17 SEX: F Status: REG REF SPEC: [id number] KIMMY: 02/05/17-[address]: Siena Larson NP REQ: [id number] RECD: 02/06/17 STATUS: COMP _ S[facility]: [facility]: ORDERED: Flu A B Request COMMENTS: [id number] Procedure Result Reported Site Rapid Influenza A B Request Final 02/06/17- 1302 ML Specimen received for Influenza A/B Molecular testing * ML - MAIN LAB ([facility]) . END OF REPORT * ML=Testing performed at Main Lab DEPARTMENT OF PATHOLOGY, [address] [place] [address] Ayush Melendez M.D. Director [facility] # [id number] 4 Because ethnic data is not always [...] [address]: Siena Larson NP Acct: [id number] Unit: [id number] AGE: 61 Location: [facility] Re01/01/17 SEX: F Status: REG REF SPEC: [id number] KIMMY: 01/01/[address]: Siena Larson NP REQ: [id number] RECD: 01/01/17 STATUS: SOUT _ ORDERED: TP IMAGE ANAL, HPV/Thin Prep, HPV 16/18 GENE COMMENTS: [id number] FINAL DIAGNOSIS Negative for Intraepithelial lesion or Malignancy A. Ectocervical/Endocervical Specimen Adequacy: Satisfactory of evaluation Transformation zone component identified Patient Information: HPV: High risk HPV RNA testing regardless of pap results. HPV 16/18 Genotype Reflex Actual Specimen Date: 01/01/17 LMP If Unknown: age 50+/- Spec Date [...] and 68. Signed (signature on file) CLIVE Restrepo(ASCP) 01/03 1036 This Pap test was evaluated with the assistance of the InsightETEPrep Test Imaging System. Due to cytologic findings at the research agricultural engineer microscope, comprehensive manual rescreening by a Dry Can Tender may be required. The Pap Smear is [...] performed at Main Lab DEPARTMENT OF PATHOLOGY, [address] [place] [address] RUN DATE: 01/03/17 [facility] LAB LIVE PAGE 1 Patient: GAY HARRIS [id number] (Continued) Ayush Melendez M.D. Director [facility] # [id number] 6 The high-risk HPV types detected by [...] REFERENCE VALUE <=1.0 (Negative) Test Performed by: [place] [id number] <1:80 (Negative) REFERENCE VALUE <1:80 (Negative) Test Performed by: [place] [address] 15 Serologic response to B. burgdorferi infection is not detected, but cannot rule out early infection during which low or undetectable antibody levels to B. burgdorferi may be present. If clinically indicated, a new serum specimen should be submitted in 7-14 days. Test Performed by: [place] [id number] REFERENCE VALUE <20.0 (Negative) Test Performed by: [place] [address] 17 Test Performed by: [place] [id number] SEE RESULT BELOW Name: GAY HARRIS : [address]: Siena Larson NP Acct: [id number] Unit: [id number] AGE: 61 Location: [facility] Re07/17/16 SEX: F Status: REG REF SPEC: [id number] KIMMY: 07/17/16-[address] [facility] DR: Siena Larson NP REQ: [id number] RECD: 07/17/16 STATUS: COMP _ SOURCE: URINE SPDESC: ORDERED: Urine Culture COMMENTS: [id number] Urine Source: Random Procedure Result Reported Site Urine Culture Final 07/19/16- 0842 ML No Growth (<1,000 CFU/mL) * ML - MAIN LAB ([facility]) . END OF REPORT * ML=Testing performed at Main Lab DEPARTMENT OF PATHOLOGY, [address] [place] [address] Ayush Melendez M.D. Director [facility] # [id number] 19 SEE RESULT BELOW Name: GAY HARRIS : [address]: Kevin Valle MD Acct: [id number] Unit: [id number] AGE: 61 Location: THYROID Re07/12/16 SEX: F Status: REG REF SPEC: [id number] KIMMY: 07/12/16-[address] [facility] DR: Kevin Valle MD REQ: [id number] RECD: 07/12/16 STATUS: HAWK KAUFMAN DR: Sveta Harvey MD _ ORDERED: FNA-IMG GUID BX/3, CYTO ADEQ-1ST P/3 FINAL DIAGNOSIS 1) Thyroid, left inferior, Ultrasound guided, fine needle aspiration: Benign thyroid nodule-colloid/hyperplastic ([place] class II). 2) Thyroid, left mid anterior, Ultrasound guided, fine needle aspiration: Benign thyroid nodule-involutional type ([place] class II). 3) Thyroid, left mid, Ultrasound guided, fine needle aspiration: Benign thyroid nodule-colloid/hyperplastic ([place] class II). 1) The specimen demonstrates abundant [...] performed at Main Lab DEPARTMENT OF PATHOLOGY, [address] [place] [address] Ayush Melendez M.D. Director [facility] # [id number] RUN DATE: 07/13/16 [facility] LAB LIVE PAGE 2 Patient: GAY HARRIS Jay [id number] (Continued) SPECIMEN COMMENTS (Continued) as the above. [...] performed at Main Lab DEPARTMENT OF PATHOLOGY, [address] [place] [address] Ayush Melendze M.D. Director [facility] # [id number] RUN DATE: 07/13/16 [facility] LAB LIVE PAGE 3 Patient: GAY HARRIS [id number] (Continued) GROSS DESCRIPTION (Continued) Signed (signature on file) Precious Whiting MD 07/25 1700 END OF REPORT * ML=Testing performed at Main Lab DEPARTMENT OF PATHOLOGY, [address] [place] [address] Ayush Melendez M.D. Director [facility] # [id number] 20 SEE RESULT BELOW Name: GAY HARRIS : [address]: Rob Pantoja MD Acct: [id number] Unit: [id number] AGE: 61 Location: ENDO Re06/19/16 SEX: F Status: REG REF SPEC: [id number] KIMMY: 06/19/[address] [facility] DR: Rob Pantoja MD REQ: [id number] RECD: 06/19/16 STATUS: STANLEY KAUFMAN DR: Siena Larson FUEL SYSTEM MAINTENANCE WORKER _ SOURCE: GAS ANTRUM SPDESC: ORDERED: Clotest Procedure Result Reported Site Clotest Final 06/20/16748 ML Clotest Negative * ML - MAIN LAB ([facility]) . END OF REPORT * ML=Testing performed at Main Lab DEPARTMENT OF PATHOLOGY, [address] [place] [address] Ayush Melendez M.D. Director [facility] # [id number] 21 SEE RESULT BELOW Name: GAY HARRIS : [address]: Rob Pantoja MD Acct: [id number] Unit: [id number] AGE: 61 Location: ENDO Re/11/17 SEX: F Status: DEP REF SPEC: [id number] KIMMY: 06/19/16-[address] [facility] DR: Rob Pantoja MD REQ: [id number] RECD: 06/19/16 STATUS: HAWK KAUFMAN DR: Siena Larson FUEL SYSTEM MAINTENANCE WORKER _ ORDERED: KERATIN STAIN, LEVEL IV, HP-ADD [...] performed at Main Lab DEPARTMENT OF PATHOLOGY, [address] [place] [address] Ayush Melendez M.D. Director [facility] # [id number] RUN DATE: 06/21/16 [facility] LAB LIVE PAGE 2 Patient: STEVEN,GAY Thompson [id number] (Continued) GROSS DESCRIPTION (Continued) Signed (signature on file) Ayush Melendez MD 1442 END OF REPORT * ML=Testing performed at Main Lab DEPARTMENT OF PATHOLOGY, [address] [place] [address] Ayush Melendez M.D. Director [facility] # [id number] Procedures Date Code Description Status 09/17/2018 89804 EKG Tracing & Interpretation Completed 07/25/2018 Inject/Drain Joint/Bursa Major W/O US Completed 04/25/2018 Inj/Aspir, Intermediate Joint/Bursa W/ US Completed 01/08/2017 19592 Stress Test Completed 01/08/2017 96693 Myocardial Perfusion Imaging Tomographic (Spect) Completed Multiple Studies 01/01/2017 39219 EKG Tracing & Interpretation Completed 06/08/2016 40945 Inject/Drain Joint/Bursa Major W/O US Completed 05/18/2016 82264888 Mammogram Completed 04/23/2016 07969 Remove Impacted Cerumen Completed 04/23/2016 19504 Remove Impact Cerumen Irrigati Completed 08/08/2012 18281 Inject/Drain Joint/Bursa Major W/O US Completed 08/08/2012 20483 Rad Exam; Knee, Ap&L Completed 08/08/2012 02918 Xray Knee 3 Views Completed 03/11/2009 904370245 Diabetic Retinal Eye Exam Completed 04/15/2007 37645 Color Flow Doppler/Interp & Reprt Completed 04/15/2007 02192 Color Flow Doppler/Interp & Reprt Completed 04/15/2007 70230 Pulse Wave/Continuous-Interp.RPT Completed 04/15/2007 39567 Echocardiography, Transesophageal, Real Time W/Image Completed 2D W/W/O M-M 04/15/2007 57876 Echocardiography, Transesophageal, Real Time W/Image Completed 2D W/W/O M-M 03/11/1995 13648525 Colonoscopy Completed Encounters Type Date Location Provider Dx Diagnosis Office Visit 09/02/2018 [facility] Internal Siena Larson, F33.9 Major depressive 3:40p Medicine - [facility] N.P. disorder, recurrent, unspecified G47.00 Insomnia, unspecified Office Visit 08/25/2018 10:00a [facility] Internal Siena Larson, F33.9 Major depressive Medicine - N.P. disorder, [facility] recurrent, unspecified R41.0 Disorientation, unspecified R26.0 Ataxic gait M25.561 Pain in right knee G47.00 Insomnia, unspecified Z12.31 Encntr screen mammogram for malignant neoplasm of breast Office Visit 07/25/2018 10:40a [facility] Internal Siena Larson, F33.9 Major depressive Medicine - N.P. disorder, [facility]cm[facility] recurrent, unspecified G47.00 Insomnia, unspecified Office Visit 07/25/2018 8:15a [facility] Lindsay Bennett, M25.561 Pain in right Of [facility] M.D. knee M25.461 Effusion, right knee M17.31 Unilateral post-traumatic osteoarthritis, right knee Office Visit 06/17/2018 10:00a [facility] Internal Siena Larson, F33.9 Major depressive Medicine - [place] N.P. disorder, recurrent, unspecified Office Visit 06/03/2018 10:00a [facility] Internal Siena Larson, F32.9 Major depressive Medicine - [place] N.P. disorder, single episode, unspecified Office Visit 05/20/2018 11:00a [facility] Internal Siena Larson, F32.9 Major depressive Medicine - [place] N.P. 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 disorder, single episode, unspecified I10 Essential (primary) hypertension J06.9 Acute upper respiratory infection, unspecified Office Visit 04/07/2018 3:00p [facility] Internal Siena Larson, F32.9 Major depressive Medicine - N.P. disorder, single Ccmob episode, unspecified I10 Essential (primary) hypertension J45.31 Mild persistent asthma with (acute) exacerbation M25.512 Pain in left shoulder Office Visit 03/31/2018 3:00p [facility] Internal Siena Larson, F32.9 Major depressive Medicine - N.P. disorder, single [facility]cmob episode, unspecified J45.31 Mild persistent asthma with (acute) exacerbation I10 Essential (primary) hypertension M25.512 Pain in left shoulder Office Visit 12/19/2017 11:00a [facility] Internal Siena Larson, J44.1 Chronic obstructive Medicine - N.P. pulmonary disease w [facility] (acute) exacerbation M25.561 Pain in right knee E04.2 Nontoxic multinodular goiter R03.0 Elevated blood-pressure reading, w/o diagnosis of htn Office Visit 12/12/2017 10:40a [facility] Internal Siena Larson, J44.1 Chronic obstructive Medicine - N.P. pulmonary disease w [facility] (acute) exacerbation F17.218 Nicotine dependence, cigarettes, w oth disorders E04.1 Nontoxic single thyroid nodule Office Visit 02/05/2017 10:00a [facility] Internal Siena Larson, I10 Essential ( primary) Medicine - [place] N.P. hypertension E78.00 Pure hypercholesterolemia, unspecified R53.81 Other malaise Office Visit 01/01/2017 10:40a [facility] Internal Siena Larosn, Z00.01 Encounter for Medicine - [facility] N.P. general adult medical exam w abnormal [...] human papillomavirus (HPV) Office Visit 09/21/2016 3:40p [facility] Internal Siena Larson, M25.50 Pain in Medicine - N.P. unspecified joint [facility] R11.2 Nausea with vomiting, unspecified Office Visit 07/17/2016 4:20p [facility] Internal Siena Larson, R53.83 Other fatigue Medicine - [facility] N.P. M17.11 Unilateral primary osteoarthritis, right knee [...] osteoarthritis, right knee Office Visit 02/03/2016 10:00a [facility] R05 Cough H60.91 Unspecified otitis externa, right ear Office Visit 01/12/2016 11:00a [facility] Internal Siena Larson, H60.91 Unspecified otitis Medicine - N.P. externa, right ear [facility]cm[facility] Office Visit 01/02/2016 1:20p [facility] Internal Siena Larson, H60.11 Cellulitis of Medicine - N.P. right external ear Ccm[facility] H62.41 Otitis externa in oth diseases classd elswhr, right ear H60.91 Unspecified otitis externa, right ear Office Visit 12/09/2015 11:00a [facility] Internal Siena Larson, F32.9 Major depressive Medicine - N.P. disorder, single [facility]cm[facility] episode, unspecified M25.561 Pain in right knee G47.09 Other insomnia Office Visit 10/13/2015 12:40p [facility] Internal Sugar Patrick, H60.541 Acute eczematoid Medicine - M.D. otitis externa, [facility]cm[facility] right ear H00.012 Hordeolum externum right lower eyelid F41.9 Anxiety disorder, unspecified Office Visit 09/15/2012 3:15p [facility] Mega Hanks, 716.96 Arthropathy Unspec Services Of M.D. Lower Leg [facility]. Office Visit 08/08/2012 10:30a [facility] Mega Hanks, 844.9 Sprains & Strains Services Of M.D. Knee & Leg Unspec C.M.A. 716.96 Arthropathy Unspec Lower Leg 727.51 Cyst Synovial Popliteal Space V72.5 Examination Radiological NEC Plan of Treatment Future Appointment(s):10/10/2018 2:45 pm - Lindsay Bennett M.D. at [facility]10/29/2018 10:00 am - Siena Larson NRaissaPRaissa at [facility] Internal Medicine - [facility]09/26/2018 10:15 am - Korey Chong PA-C at [facility]09/26/2018 10:15 am - JAYASHREE Pacheco at [facility]09/26/2018 10:15 am - Lindsay Bennett M.D. at [facility]09/19/2018 - Lindsay Bennett M.D.M17.11 Unilateral primary osteoarthritis, right kneeFollow up:10-14 days post-opM25.561 Pain in right knee
[2018-09-26] MEDS ORDERED: Buffered Lidocaine 1% SYRIN* 1 ML/SYRINGE INTRADERM ONE (08:02)
[2018-09-26] MEDS ORDERED: ceFAZolin 2 GM in NS PREMIX(*) 2 GM/100 ML BAG IVPB ONE (08:02)
[2018-09-26] MEDS ORDERED: Famotidine IV* 10 MG/ML 2 ML (20 mg) ONE (08:02)
[2018-09-26] MEDS ORDERED: Gabapentin CAP(*) 300 MG ONE (08:02)
[2018-09-26] MEDS ORDERED: ROPIVACAINE 5 MG/ML 30 ML BTL (0.5%) ONE ×2 (08:13→09:50)
[2018-09-26] MEDS ORDERED: Lidocaine 1% MPF ** 5 ML VIAL ONE (08:13)
[2018-09-26] MEDS ORDERED: fentaNYL* 50 MCG/ML 2 ML VIAL (100 MCG VIAL) ONE (08:53)
[2018-09-26] MEDS ORDERED: Midazolam* 1 MG/ML 5 ML VIAL (5 MG) ONE (08:55)
[2018-09-26] MEDS ORDERED: KETAMINE HCL* 50 MG/ML 10 ML VIAL ONE (10:07)
[2018-09-26] MEDS ORDERED: Midazolam* 1 MG/ML 2 ML VIAL (2 MG) ONE (10:15)
[2018-09-26] MEDS ORDERED: Propofol* 10 MG/ML 20 ML BTL ONE (10:37)
[2018-09-26] MEDS ORDERED: Ketorolac INJ* 30 MG/ML 1 ML VIAL ONE (10:37)
[2018-09-26] MEDS ORDERED: DiMENhydriNATE IV* 50 MG/ML VIAL ONE (10:37)
[2018-09-26] MEDS ORDERED: Ondansetron INJ* 2 MG/ML VIAL ONE (10:37)
[2018-09-26] MEDS ORDERED: DiMENhydriNATE IV* 50 MG/ML VIAL IV PUSH PRN (11:37)
[2018-09-26] MEDS ORDERED: oxyCODONE/Acetamin 5/325 MG* TAB PO PRN ×3 (11:37→12:47)
[2018-09-26] MEDS ORDERED: HYDROmorphone INJ1* 1 MG/ML SYRINGE IV PRN (11:37)
[2018-09-26] MEDS ORDERED: Naloxone* 0.4 MG/ML 1 ML VIAL IV PRN (11:37)
[2018-09-26] MEDS ORDERED: Gabapentin CAP(*) 100 MG PO ONE (11:38)
[2018-09-26] MEDS ORDERED: HYDROmorphone INJ1* 1 MG/ML SYRINGE ONE (12:01)
--- NOTE | 2018-09-26 12:08 | OP ---
Operative Report - Blank - Operative Report Date of Operation: 09/26/18 Note: GAY HARRIS 1955 Date of Surgery: 09/26/18 Lindsay Bennett MD Pilot Submersible: Urszula BLANC did help throughout the procedure with preparation of the knee, wound retraction, manipulation of the knee, and wound closure. Anesthesiologist: Urszula Mascorro MD Anesthesia Type: Spinal Preoperative Diagnosis: Right severe degenerative osteoarthritis of the knee Postoperative Diagnosis: As above Procedure Performed: Right Total Knee Arthroplasty Tourniquet time: 38 minutes Complications: None Specimen: Bone and cartilage from the right knee joint sent to pathology. Hardware Used: Cemented Dave and Nephew total knee hardware was used - For the femur a size 5 right narrow oxinium legion posterior stabilized femoral component, for the tibia a size 3 right joleen II tibial baseplate, for the insert a size 9mm 3-4 posterior stabilized articular polyethylene insert, and for the patella a size 32 3-peg all poly patella. Brief History/Indication: GAY HARRIS was known in clinic and had a history of severe right knee pain and swelling. She has a history of a remote workman's comp injury and has had pain for years. She failed conservative treatment with anti-inflammatories, pain pills, intra-articular injections and physical therapy. She elected to undergo right total knee arthroplasty due to continued pain and decreased quality of life. Radiographs showed severe end stage osteoarthritis of the knee with bone on bone contact. Informed consent was obtained from the patient. She understood the risks of surgery included but were not limited to: bleeding, infection, damage to nearby structures, intraoperative fracture, nerve palsy, failure of the hardware, early loosening, knee stiffness or loss of motion, anesthesia complications, stroke, heart attack , blood clot and . She wished to proceed. Intra-Operative Findings: Intraoperatively the patient was noted to have severe loss of cartilage in all 3 compartments of the knee. Description of the Procedure: GAY HARRIS was identified in the preanesthesia unit. Her right knee was marked as the correct operative side. Informed consent was signed and placed in the chart. The patient was taken to the operating room and placed under anesthesia without complication. A aaron catheter was placed. A tourniquet was placed on the right thigh. The right lower extremity was prepped and draped in the usual sterile fashion. Preoperative time-out was made to correctly identify the patient, side and site. Appropriate intraoperative antibiotics were given within one hour of incision. Tourniquet was inflated. A midline incision was made and carried sharply down to the extensor mechanism. A new 10 blade was used to make a standard medial parapatellar arthrotomy. The patella was subluxed laterally. Electrocautery was used to dissect soft tissue off the superomedial tibia to the midsagittal plane. The knee was flexed up. The anterior horn of the lateral meniscus and the ACL were sharply incised. A drill was used to enter the distal femur. The intramedullary distal femoral cutting guide was pinned on the distal femur. The oscillating saw was used to make the distal femoral cut. The external rotation guide was pinned on the distal femur and the distal femur was sized to a size 5. The size 5 multi-cutting jig was pinned on the distal femur. The oscillating saw was used to make the appropriate 4 chamfer cuts. Next the PCL was completely released. The extramedullary tibial cutting guide was pinned on the proximal tibia and the oscillating saw was used to make the proximal tibial cut perpendicular to the mechanical axis of the tibia. The bone was carefully removed. The knee was brought out into full extension. The spacer block was placed and had excellent fit with the knee in full extension. The medial and lateral ligaments were well balanced. The flexion and extension gaps were well balanced. The knee was flexed up. Lamina customs appraiser was placed both medially and laterally. Any remaining meniscus was removed with electrocautery. Curved osteotome was used to remove any posterior osteophytes. The tibial tray and drop brian were placed and confirmed a satisfactory tibial cut. The size 5 right narrow femoral trial was impacted onto the distal femur. This trial had excellent fit and stability. The box for the posterior stabilized implant was prepared using a box cut osteotome and a reamer. Next a tibial tray trial and 9 mm insert trial was placed. The knee was taken through a range of motion and had full extension to 130 degrees of flexion. Patellofemoral tracking was satisfactory. The patella was inverted and sized to a size 32. Three peg holes were drilled through the size 32 drill guide. The trial patella was placed and the knee was taken through a range of motion. There was satisfactory patellofemoral tracking. All trials were removed. The tibia was subluxed anteriorly and sized to a size 3. The proximal tibial was prepared with a size 3 keel punch. All bony cut surfaces were irrigated with sterile saline and dried. Final implants were cemented into place starting with the tibia, followed by the femur, and last the patella. A 9 mm insert trial was placed and the knee was brought into full extension. Tourniquet was turned down and the knee was copiously irrigated with sterile saline. Electrocautery was used to obtain meticulous hemostasis. Once the cement had fully cured, the insert trial was removed. Any excess cement was removed from around the hardware and capsule. Final insert chosen was a 9 mm posterior stabilized Joleen II articular insert size 3-4. Stability of the insert was checked and noted to be stable. The extensor mechanism was closed using number 1 vicryls. The rest of the incision was closed in a layered fashion using 0 and 2-0 vicryls. The skin was closed using 3-0 nylon suture. Sterile xeroform, 4x4s and webril were used to cover the incision. Jean wrap and cold pack were used to cover the dressings. The patients anesthesia was reversed without difficulty. She was taken to the PACU in stable condition. Intended weight-bearing will be as tolerated.
[2018-09-26] MEDS ORDERED: Mometasone/Formoter 200/5 MDI INH PRN (12:38)
[2018-09-26] MEDS ORDERED: Albuterol HFA INHALER* 8 gm MDI INH PRN (12:38)
[2018-09-26] MEDS ORDERED: Ipratropium 0.5MG/2.5ML NEB* 0.5 MG/2.5 ML NEB.SOLN INH PRN (12:38)
[2018-09-26] MEDS ORDERED: Magnesium Hydroxide LIQ* 30 ML UDC PO PRN (12:42)
[2018-09-26] MEDS ORDERED: Morphine 4 MG/ML VIAL (1 ml) 4 MG/ML VIAL IV PRN (12:47)
[2018-09-26] MEDS ORDERED: Ondansetron INJ* 2 MG/ML VIAL IV PRN (12:47)
[2018-09-26] MEDS ORDERED: Bisacodyl SUPP* 10 MG SUPP PR PRN (12:47)
[2018-09-26] MEDS ORDERED: Polyethylene Glycol 3350* 17 GM PACKET PO PRN (12:47)
[2018-09-26] MEDS ORDERED: Cyclobenzaprine TAB* 10 MG PO PRN (12:47)
[2018-09-26] MEDS ORDERED: diPHENhydraMINE PO* 25 MG PO PRN (12:47)
[2018-09-26] MEDS ORDERED: traZODone TAB* 50 MG TAB PO PRN (12:47)
[2018-09-26] MEDS ORDERED: oxyCODONE TAB* 5 MG TAB PO PRN (12:47)
[2018-09-26] MEDS ORDERED: diPHENhydraMINE IV* 50 MG/ML 1 ml VIAL (BENADRYL) IV PRN (12:47)
[2018-09-26] MEDS: clonazePAM TAB(*) 1 MG PO SCH ×2 (15:08→21:13)
[2018-09-26] MEDS: Acetaminophen TAB* 325 MG PO SCH ×2 (15:08→21:31)
[2018-09-26] MEDS: Lactated Ringers 1000 ML Bag* 1,000 ML IV SCH (15:10)
[2018-09-26] MEDS: ceFAZolin 1 GM ADVAN(*) 1 GM in NS 0.9% 50 ML* 50 ML IVPB SCH (17:33)
[2018-09-26] MEDS: Docusate CAP* 100 MG PO SCH (21:11)
[2018-09-26] MEDS: Apixaban* 2.5 MG TAB PO SCH (21:12)
[2018-09-26] MEDS: Magnesium Hydroxide LIQ* 30 ML UDC PO SCH (21:12)
[2018-09-26] MEDS: Zolpidem TAB* 5 MG PO SCH (21:13)
--- NOTE | 2018-09-26 21:48 | CONS ---
CC: Siena Larson NP * CONSULTATION NOTE: DATE OF CONSULT: 09/26/18 PRIMARY CARE PROVIDER: Siena Larson NP ATTENDING PHYSICIAN: Dr. Rowell; dictated by Candis Orozco NP. REQUESTING PHYSICIAN IN CONSULT: Dr. Lindsay Bennett. REASON FOR CONSULTATION: Co-medical management of hypertension and previous TIA. HISTORY OF PRESENT ILLNESS/HOSPITAL COURSE: I will refer you to Dr. Bennett's history and physical dictated on 09/19/18 for complete details, but in short, Ms. Aquino is a 63-year-old female with past medical history significant for osteoarthritis, mitral valve disorder, TIA, anxiety, OR with cath but no stents , CAD, hypothyroid, COPD; who presented to [facility] [place] for an elective right total knee replacement. PAST MEDICAL HISTORY: 1. Osteoarthritis. 2. Mitral valve disorder. 3. TIA. 4. Anxiety. 5. OR with cath but no stents. 6. CAD. 7. Hypothyroidism. 8. COPD. PAST SURGICAL HISTORY: 1. Right knee arthroplasty. 2. Partial thyroidectomy. 3. Appendectomy. 4. Tubal ligation. HOME MEDICATIONS: 1. Ambien 5 mg 1 p.o. before bed. 2. Escitalopram 20 mg 1 p.o. daily. 3. Bupropion ER 300 mg 1 p.o. daily. 4. Clonazepam 1 mg 1 p.o. 3 times a day. 5. Ventolin HFA 1 to 2 inhalations every 4 hours as needed. 6. Amlodipine 5 mg 1 p.o. daily. 7. Symbicort 160/4.5 mcg 2 puffs by mouth twice a day. 8. [place] 5/325 mg 1 p.o. every 6 hours as needed for pain. 9. Ipratropium/albuterol nebulizer 3 times a day as needed. 10. Triamcinolone 0.1% application twice daily. 11. Tylenol Extra Strength 500 mg 2 tabs p.o. as needed for pain. ALLERGIES: AZITHROMYCIN, SULFA, ESTROGENS, LATEX. FAMILY HISTORY: Patient's family history is positive for diabetes, CAD, hypertension, stroke, scleroderma, and breast cancer. SOCIAL HISTORY: The patient is not currently working as she is disabled. She lives alone. She reports she drinks a glass of wine 2 to 3 days a week. She reports she smokes 5 to 6 cigarettes a day but has been smoking consistently for approximately 45 years. Patient denies recreational drug use. REVIEW OF SYSTEMS: The patient reports pain in right knee is 3/10. The patient denies nausea, vomiting, chest pain, or shortness of breath. A 14- point review of systems was completed and all others are negative. PHYSICAL EXAM: General: Ms. Aquino is a 63-year-old female who is lying in bed. Appears to be in no acute distress. Appears stated age. HEENT: EOMs intact. Oral mucosa is moist without lesions. Posterior pharynx is clear. Neck : Supple. No lymphadenopathy. Cardiac: S1 and S2 present. No murmurs, rubs or gallops. Respiratory: Lungs are clear. Good aeration. No rhonchi, wheezes , or rubs. Abdomen: Soft, nontender. Bowel sounds normoactive. Extremities: No edema. No clubbing or cyanosis. Pedal pulses 2+ bilaterally. Musculoskeletal: The patient reports pain in right knee. Otherwise, no pain or deformities. Skin: Skin is grossly intact. Dressing to right knee is clean , dry, and intact. Neurologic: Neuro exam is grossly intact. DIAGNOSTIC STUDIES/LAB DATA: CBC obtained on 09/19/18; WBC 7.3, hemoglobin 15.4 , hematocrit 44, platelets 250. BMP completed on 09/19/18; sodium 140, potassium 4.5, chloride 105, carbon dioxide 28, BUN 15, creatinine 0.62. ASSESSMENT AND PLAN: Mrs. Aquino is a 63-year-old female with past medical history significant for osteoarthritis, mitral valve disorder, transient ischemic attack, anxiety, myocardial infarction, coronary artery disease, hypothyroid, chronic obstructive pulmonary disease, who presented to [facility] [place] for an elective right total knee replacement. The patient will be on short stay for postop period. 1. Status post right total knee replacement: The patient is postop day 0. Management per Ortho. 2. Mitral valve disorder: The patient reports she believes this is secondary to rheumatic fever that she had as a child. No inpatient needs for this diagnosis at this time. I would encourage the patient to follow up with her primary care. 3. Transient ischemic attack: The patient reports she presented to the hospital previously and was told she was either having a transient ischemic attack or a heart attack, but it was unclear which. The patient is currently having no neurological deficits. I would continue to monitor the patient and have her followup with her primary care. 4. Anxiety: I would continue patient's home medications of bupropion, Lexapro , clonazepam. I would be cautious on providing patient with her home Ambien at night given that she will be on narcotic medications here. I would hold this for sedation. 5. Myocardial infarction with cath but no stents. The patient reports she was told previously she is either having myocardial infarction or transient ischemic attack. The patient reports she did have a cath but required no stents. The patient is not currently on aspirin or any antiplatelet. I would encourage her to follow up with her primary care. 6. Coronary artery disease: Please see above. 7. Hypertension: The patient is currently on amlodipine. I have held this medication given her blood pressure of 98/55 and given the fact that she is in the postoperative period. I would encourage restarting this as her blood pressure normalizes. 8. Hypothyroid: The patient's history and physical reports history of hypothyroidism, although I do not see that she is on any thyroid medication. When reviewing her labs, it appears her last TSH was in 2017 and was 1.61. I have added on TSH for completeness sake and recommend she follow up with her primary care. If her TSH is elevated, I would recommend starting medications. If it is normal, she can follow up with her primary care. 9. Chronic obstructive pulmonary disease: The patient carries history of chronic obstructive pulmonary disease and she is a smoker. I will continue patient's home medications including her albuterol inhaler. I have also added nicotine patch at patient's request. 10. FEN: The patient has a diet ordered by Ortho. 11. Code status: Patient is full code. 12. Surrogate decision maker: The patient's surrogate decision maker will be Lu Vigil in the event she could not make decisions for herself. 13. DVT prophylaxis: DVT prophylaxis has been ordered by the Ortho team. TIME SPENT: Approximately 35 minutes was spent on this consultation, greater than half of that was spent with the patient, obtaining my history and performing physical exam, reviewing my plan of care. This case has been reviewed with my attending, Dr. Rowell, who is in agreement with my plan of care. CANDIS OROZCO, MANAGER RENTAL [id number]/[facility] #: [id number] BOB
[2018-09-27] MEDS: ceFAZolin 1 GM ADVAN(*) 1 GM in NS 0.9% 50 ML* 50 ML IVPB SCH ×2 (01:15→08:44)
[2018-09-27] MEDS: Lactated Ringers 1000 ML Bag* 1,000 ML IV SCH ×2 (01:18→12:27)
[2018-09-27] MEDS: Acetaminophen TAB* 325 MG PO SCH ×4 (05:12→23:04)
[2018-09-27 06:57] LABS: Hematocrit 33 % (35-47); Hemoglobin 11.4 g/dL (12.0-16.0); Mean Platelet Volume 8.1 fL (7.4-10.4); Platelet Count 178 10^3/uL (150-450)
[2018-09-27 07:08] LABS: BUN/Creatinine Ratio 22.4 (8-20); Calcium 8.4 mg/dL (8.6-10.3); EGFR African American 108.3 (>60); EGFR Non-African American 89.5 (>60); Potassium 4.1 mmol/L (3.5-5.0)
[2018-09-27 07:26] LABS: TSH (Thyroid Stimulating Horm) 0.38 mcIU/mL (0.34-5.60)
[2018-09-27] MEDS: clonazePAM TAB(*) 1 MG PO SCH ×3 (08:24→23:02)
[2018-09-27] MEDS: Magnesium Hydroxide LIQ* 30 ML UDC PO SCH ×2 (08:25→21:48)
[2018-09-27] MEDS: Apixaban* 2.5 MG TAB PO SCH ×2 (08:25→21:47)
[2018-09-27] MEDS: Escitalopram * 20 MG TABLET PO SCH (08:25)
[2018-09-27] MEDS: traMADol TAB* 50 MG PO PRN ×3 (08:25→21:47)
[2018-09-27] MEDS: Docusate CAP* 100 MG PO SCH ×2 (08:25→21:45)
[2018-09-27] MEDS: Nicotine PATCH 14 MG/24 HR* PATCH TRANSDERM SCH (08:44)
[2018-09-27] MEDS: BuPROPion XL* 300 MG TAB.XL PO SCH (08:44)
[2018-09-27] MEDS ORDERED: amLODIPine TAB* 5 MG PO SCH (09:00)
--- NOTE | 2018-09-27 10:26 | PN ---
Subjective Date of Service: 09/27/18 Interval History: Patient resting in recliner on assessment. Reports pain is about a "9" and she just informed the nurse therefore pain medication was on its way. Discussed requesting pain medication prior to reaching level 9. Patient reports she discussed pain management with ortho PA this morning. Patient reports aaron was removed this morning and she is waiting to void. Patient denies cp, sob, palpitations, dizziness, nausea, vomiting. Objective Active Medications: Acetaminophen (Tylenol Tab*) 975 mg PO Q8HR [facility] Last Admin: 09/27/18 06:03 Dose: 975 mg Albuterol (Ventolin Hfa Inhaler*) 2 puff INH Q4H PRN PRN Reason: SOB/WHEEZING Apixaban (Eliquis*) 2.5 mg PO BID [facility] Last Admin: 09/27/18 08:25 Dose: 2.5 mg Bisacodyl (Dulcolax Supp*) 10 mg [place] DAILY PRN PRN Reason: constipation Bupropion HCl (Bupropion Xl*) 300 mg PO QAM [facility] Last Admin: 09/27/18 08:44 Dose: 300 mg Clonazepam (Klonopin Tab(*)) 1 mg PO TID [facility] Last Admin: 09/27/18 08:24 Dose: Not Given Cyclobenzaprine HCl (Flexeril Tab*) 10 mg PO TID PRN PRN Reason: SPASMS Diphenhydramine HCl (Benadryl Iv*) 25 mg IV Q6H PRN PRN Reason: itching Diphenhydramine HCl (Benadryl Po*) 25 mg PO Q6H PRN PRN Reason: itching Docusate Sodium (Colace Cap*) 100 mg PO BID [facility] Last Admin: 09/27/18 08:25 Dose: 100 mg Escitalopram Oxalate (Lexapro *) 20 mg PO QAM [facility] Last Admin: 09/27/18 08:25 Dose: 20 mg Lactated Ringer's (Lactated Ringers 1000 Ml Bag*) 1,000 mls @ 100 mls/hr IV PER RATE [facility] Last Admin: 09/27/18 01:18 Dose: 100 mls/hr Ipratropium [place] (Atrovent 0.5 Mg Neb.Naz*) 0.5 mg INH TID PRN PRN Reason: SOB/WHEEZING Lactulose (Lactulose*) 30 ml PO Q6H PRN PRN Reason: constipation Magnesium Hydroxide (Milk Of Magnesia Liq*) 30 ml PO BID [facility] Last Admin: 09/27/18 08:25 Dose: 30 ml Magnesium Hydroxide (Milk Of Magnesia Liq*) 30 ml PO Q6H PRN PRN Reason: constipation Mometasone Furoate/Formoterol Fumar (Dulera 200/5 Mdi*) 2 puff INH BID PRN; Protocol PRN Reason: DIFFICULTY BREATHING Morphine Sulfate (Morphine 4 Mg/Ml Vial (1 Ml)) 2 mg IV Q2H PRN PRN Reason: PAIN - UNRELIEVED Nicotine (Nicotine Patch 14 Mg/24 Hr*) 1 patch TRANSDERM DAILY [facility] Last Admin: 09/27/18 08:44 Dose: 1 patch Ondansetron HCl (Zofran Inj*) 4 mg IV Q6H PRN PRN Reason: nausea Ondansetron HCl (Zofran Odt Tab*) 4 mg PO Q6H PRN PRN Reason: NAUSEA Oxycodone HCl (Roxycodone Tab*) 10 mg PO Q4H PRN PRN Reason: PAIN - SEVERE Last Admin: 09/26/18 21:12 Dose: 10 mg Oxycodone/Acetaminophen (Percocet 5/325 Tab*) 1 tab PO Q4H PRN PRN Reason: PAIN - MODERATE Last Admin: 09/26/18 17:33 Dose: 1 tab Oxycodone/Acetaminophen (Percocet 5/325 Tab*) 2 tab PO Q4H PRN PRN Reason: PAIN - MODERATE TO SEVERE Last Admin: 09/27/18 01:16 Dose: 2 tab Pharmacy Profile Note (Nicotine Patch Removal Note*) 1 note PATCH OFF 2099 [facility] Polyethylene Glycol/Electrolytes (Miralax*) 17 gm PO DAILY PRN PRN Reason: Constipation Tramadol HCl (Ultram*) 50 mg PO Q6H PRN PRN Reason: PAIN Last Admin: 09/27/18 08:25 Dose: 50 mg Trazodone HCl (Desyrel Tab*) 25 mg PO BEDTIME PRN PRN Reason: insomnia Zolpidem Tartrate (Ambien Tab*) 5 mg PO BEDTIME [facility] Last Admin: 09/26/18 21:13 Dose: Not Given Vital Signs - 8 hr 09/27/18 09/27/18 09/27/18 03:00 03:43 05:34 Temperature 98.5 F Pulse Rate 76 73 Respiratory 16 22 16 Rate Blood Pressure 105/53 97/53 (mmHg) O2 Sat by Pulse 92 94 Oximetry 09/27/18 09/27/18 09/27/18 07:55 08:00 08:25 Temperature 98.6 F Pulse Rate 75 Respiratory 16 20 18 Rate Blood Pressure 106/62 (mmHg) O2 Sat by Pulse 97 Oximetry Oxygen Devices in Use Now: None Appearance: Comfortable, NAD Eyes: No Scleral Icterus Ears/Nose/Mouth/Throat: Clear Oropharnyx, Mucous Membranes Moist Neck: NL Appearance and Movements; NL JVP Respiratory: Symmetrical Chest Expansion and Respiratory Effort, Clear to Auscultation Cardiovascular: NL Sounds; No Murmurs; No JVD, RRR, No Edema Abdominal: NL Sounds; No Tenderness; No Distention Lymphatic: No Cervical Adenopathy Extremities: No Clubbing, Cyanosis Skin: No Rash or Ulcers Neurological: Alert and Oriented x 3 Nutrition: Taking PO's Result Diagrams: 09/27/18 06:43 09/27/18 06:43 Additional Lab and Data: Laboratory Results - last 24 hr 09/27/18 09/27/18 06:43 06:43 Hgb 11.4 L Hct 33 L Plt Count 178 MPV 8.1 Sodium 136 Potassium 4.1 Chloride 105 Carbon Dioxide 28 Anion Gap 3 BUN 15 Creatinine 0.67 Est GFR ( Amer) 108.3 Est GFR (Non-Af Amer) 89.5 BUN/Creatinine Ratio 22.4 H Glucose 138 H Calcium 8.4 L TSH 0.38 Microbiology and Other Data: . Assess/Plan/Problems-Billing Assessment: 63 yr old female with pmh of OA, Mitral Valve Disorder, TIA, Anxiety, ID, CAD, Hypothyroid, COPD; who presented to [facility] for an elective right total knee replacement - Patient Problems (1) Status post total right knee replacement Comment: - POD 1 - Management per ortho (2) Hypertension Comment: - Continues to have low blood pressures, therefore, I would recommend continuing to hold Norvasc until BP's increase to prevent hypotension. - Cont to monitor BP routinely (3) Pain Comment: - Per ortho management (4) Anxiety Comment: - Cont home medications of Bupropion, Lexapro, Clonazepam - Monitor for over sedations specifically with Clonazepam and hold if sedating. - Patient also takes Ambein at night which should be held for over sedation (5) Hypothyroid Comment: - Not on home medications for thyroid - TSH wnl (6) COPD (chronic obstructive pulmonary disease) Comment: - No s/s of exacerbation - Cont Albuteral as needed (7) Smoking Comment: - Nicotine replacement ordered - Smoking cessation discussed (8) DVT prophylaxis Comment: - Eliquis and SCDs per ortho Status and Disposition: Thank you for allowing us to participate in the care of this patient. We will be signing off, but are available as needed. Attending: Eddie Rowell
--- NOTE | 2018-09-27 11:24 | PN ---
Progress Note - Progress Note Date of Service: 09/27/18 SOAP: Subjective: []Patient seen OOB in chair, having moderate knee pain this morning. Denies nausea, CP, dizziness. Objective: [] Vital Signs Temp 98.6 F 09/27/18 07:55 Pulse 75 09/27/18 07:55 Resp 20 09/27/18 10:36 BP 106/62 09/27/18 07:55 Pulse Ox 97 09/27/18 07:55 Intake & Output 09/26/18 09/27/18 09/27/18 18:59 06:59 18:59 Intake Total 1700 2316 Output Total 525 1000 Balance 1175 1316 Weight 151 lb 3.2 oz Intake: IV Fluids 1700 964 LR 1700 964 IVPB 52 ABX - CEFAZOLIN 52 Oral 1300 Output: Isbell 525 1000 Laboratory Results - last 24 hr 09/27/18 09/27/18 06:43 06:43 Hgb 11.4 L Hct 33 L Plt Count 178 MPV 8.1 Sodium 136 Potassium 4.1 Chloride 105 Carbon Dioxide 28 Anion Gap 3 BUN 15 Creatinine 0.67 Est GFR ( Amer) 108.3 Est GFR (Non-Af Amer) 89.5 BUN/Creatinine Ratio 22.4 H Glucose 138 H Calcium 8.4 L TSH 0.38 Right knee dressings are dry and intact calf NT and soft + Df right ankle sensation and circulation intact distally Assessment: []s/p right total knee arthroplasty POD #1 Plan: []Pain management WBAT RLE w PT/OT Eliquis for DVT prophylaxis Home 1-2 days
[2018-09-27] MEDS ORDERED: NS 0.9% 500 ML* 500 ML IV ONE (15:00)
[2018-09-27] MEDS: Ondansetron ODT TAB* 4 MG PO PRN ×2 (15:42→21:49)
[2018-09-27] MEDS ORDERED: Nicotine Patch Removal NOTE PATCH OFF SCH (21:00)
[2018-09-27] MEDS: Zolpidem TAB* 5 MG PO SCH (23:04)
[2018-09-28] MEDS: Acetaminophen TAB* 325 MG PO SCH (05:55)
[2018-09-28 07:06] LABS: Hematocrit 33 % (35-47); Hemoglobin 11.3 g/dL (12.0-16.0); Mean Platelet Volume 8.1 fL (7.4-10.4); Platelet Count 192 10^3/uL (150-450)
[2018-09-28] MEDS: Magnesium Hydroxide LIQ* 30 ML UDC PO SCH (09:11)
[2018-09-28] MEDS: Docusate CAP* 100 MG PO SCH (09:11)
[2018-09-28] MEDS: Apixaban* 2.5 MG TAB PO SCH (09:12)
[2018-09-28] MEDS: traMADol TAB* 50 MG PO PRN (09:12)
[2018-09-28] MEDS: clonazePAM TAB(*) 1 MG PO SCH (09:14)
[2018-09-28] MEDS: Nicotine PATCH 14 MG/24 HR* PATCH TRANSDERM SCH (09:15)
[2018-09-28] MEDS: BuPROPion XL* 300 MG TAB.XL PO SCH (09:17)
[2018-09-28] MEDS: Escitalopram * 20 MG TABLET PO SCH (09:17)
--- NOTE | 2018-09-28 10:49 | DS ---
Orthopedic Discharge Summary - Discharge Summary Date of Admission:09/26/18 Date of Discharge: 09/28/18 Date of Surgery: 09/26/18 Attending Orthopedic Provider: Dr. Bennett Pre-operative Diagnosis: Degenerative arthritis right knee Operative Procedure: Right total knee arthroplasty Disposition of Patient: home Condition of Patient: stable History: GAY HARRIS is a 63 year old F with years of increasingly severe right knee pain. Patient has failed conservative management and has elected to undergo a right total knee replacement Hospital Course: GAY was admitted to [facility] on 09/26/18. Patient underwent a right total knee replacement without complication followed by a brief recovery in PACU and transfer to the Short Stay Surgical Unit in stable condition. Our hospitalist service, physical therapy and occupational therapy also participated in this patients care. Post-op day 1: patient was alert and in no acute distress. Dressing was clean, dry and intact. Operative extremity dorsiflexion and plantarflexion intact, sensation intact to light touch distally, DP2+. Post-op day two: dressing was changed, incision was clean , dry and intact. Patient was deemed to be medically and orthopedically stable for discharge. Physical therapy goals were met. Percocet was making her somnolent so Tramadol was used for pain management instead. She is given a prescription for this at discharge. Home Medications Medication Instructions Recorded Confirmed Type Escitalopram Oxalate [Lexapro 20 20 mg PO QAM 06/18/16 09/26/18 History mg] Zolpidem Tartrate [Ambien] 5 mg PO BEDTIME 06/18/16 09/26/18 History Albuterol HFA INHALER* [Ventolin 1 - 2 puff INH Q4H PRN 09/19/18 09/26/18 History HFA Inhaler*] BuPROPion XL* [Bupropion XL*] 300 mg PO QAM 09/19/18 09/26/18 History Budesonide/Formote 160/4.5(NF) 2 puff INH BID PRN 09/19/18 09/26/18 History [Symbicort 160/4.5 (NF)] Ipratropium 0.5MG/2.5ML NEB* 1 dose INH TID PRN 09/19/18 09/26/18 History [Atrovent 0.5 MG NEB.CHARI*] Melatonin 40 mg PO BEDTIME 09/19/18 09/26/18 History amLODIPine TAB* [Norvasc 5 mg TAB*] 5 mg PO QAM 09/19/18 09/26/18 History clonazePAM TAB(*) [Klonopin TAB(*)] 1 mg PO TID 09/19/18 09/26/18 History diphenhydrAMINE HCl [Benadryl 2 tab PO BEDTIME 09/19/18 09/26/18 History Allergy] Apixaban* [Eliquis*] 2.5 mg PO BID #60 tab 09/28/18 Rx Docusate CAP* [Colace Cap*] 100 mg PO BID cap 09/28/18 Rx traMADol TAB* [Ultram*] 50 mg PO Q6H PRN #42 tab MDD 4 09/28/18 Rx Discharge Instructions following Orthopedic Surgery: Activity: * Weight Bearing as tolerated * Continue physical therapy and occupational therapy exercises as shown Wound care: * OK to shower on post-op day 3, no bathing, swimming, or submerging wound. * Use gentle soap, pat dry. Cover with gauze, JIGAR wrap or tape. * Visiting home nurse to do wound checks. Call Orthopedic office for: * Increased drainage * Redness * Increased pain * Fever Go to ER with shortness of breath or chest pain. Diet: * Regular diet * Increase fluids and fiber to prevent constipation. * Continue to use stool softeners, call office if no bowel motion within 48 hours. Medications See Home Medication List in your packet for medications that you should take after discharge. Eliquis Dosin.5 mg, 1 tab every 12 hours x 30 days Pain Control: Tramadol 50 mg q 6 hrs prn pain . Antibiotics are required prior to any dental work. FOLLOW UP: Follow up with Dr. Bennett Within 10-14 days, call for appointment Please call our office with any questions or concerns ([phone])
[2018-09-28 11:37] VITALS: BP 137/75
== END 2018-09-28 13:25 | disposition home or self-care (01) | DRG 302 ==
LOC: AA 07:51 → SSU 14:16
PROVIDERS: ADMIT Orthopaedic Surgery Adult Reconstructive Orthopaedic Surgery; ATTEND Orthopaedic Surgery Adult Reconstructive Orthopaedic Surgery
PROC: 0SRC0J9 Replacement of Right Knee Joint with Synthetic Substitute, Cemented, Open Approach (ICD-10-PCS; principal; 2018-09-26 09:45)
DX: M17.11 Unilateral primary osteoarthritis, right knee (principal); F33.9 Major depressive disorder, recurrent, unspecified; F41.9 Anxiety disorder, unspecified; I25.10 Atherosclerotic heart disease of native coronary artery without angina pectoris; E89.0 Postprocedural hypothyroidism; M25.461 Effusion, right knee; M25.761 Osteophyte, right knee; J44.9 Chronic obstructive pulmonary disease, unspecified; F17.210 Nicotine dependence, cigarettes, uncomplicated; F32.9 Major depressive disorder, single episode, unspecified; F43.10 Post-traumatic stress disorder, unspecified; M32.9 Systemic lupus erythematosus, unspecified; I05.9 Rheumatic mitral valve disease, unspecified; E11.9 Type 2 diabetes mellitus without complications; J45.30 Mild persistent asthma, uncomplicated; Z98.51 Tubal ligation status; Z72.89 Other problems related to lifestyle; I25.2 Old myocardial infarction; Z86.73 Personal history of transient ischemic attack (TIA), and cerebral infarction without residual deficits; Z88.2 Allergy status to sulfonamides; Z88.8 Allergy status to other drugs, medicaments and biological substances; Z88.1 Allergy status to other antibiotic agents; Z91.040 Latex allergy status; Z83.3 Family history of diabetes mellitus; Z82.49 Family history of ischemic heart disease and other diseases of the circulatory system; Z82.3 Family history of stroke; Z80.3 Family history of malignant neoplasm of breast; Z82.0 Family history of epilepsy and other diseases of the nervous system; Z80.41 Family history of malignant neoplasm of ovary; Z82.61 Family history of arthritis; Z85.41 Personal history of malignant neoplasm of cervix uteri
CPT/HCPCS: 36415; 80048; 84443; 85014; 85018; 85049; A9270-GY; C1776; J0690; J1170; J1240; J1885; J2250; J2405; J2704; J2795; J3010

== ENCOUNTER 2018-11-12 13:44 | Emergency (ER) | payer MEDICAID, MEDICARE, OTHER ==
[2018-11-12 14:10] LABS: ABS Basophils 0.1 10^3/ul (0-0.2); ABS Eosinophils 0.1 10^3/ul (0-0.6); ABS Lymphocytes 2.5 10^3/ul (1.0-4.8); ABS Monocytes 0.5 10^3/ul (0-0.8); ABS Neutrophils 4.4 10^3/ul (1.5-7.7); Eosinophil % 0.8 %; Hematocrit 39 % (35-47); Hemoglobin 13.5 g/dL (12.0-16.0); Lymphocyte % 33.5 %; Mean Corpuscular HGB Conc 35 g/dL (31-36); Mean Corpuscular Hemoglobin 33 pg (27-31); Mean Corpuscular Volume 95 fL (80-97); Mean Platelet Volume 7.2 fL (7.4-10.4); Platelet Count 329 10^3/uL (150-450); Red Blood Count 4.12 10^6 /uL (3.70-4.87); Red Cell Distribution Width 14 % (10-15); White Blood Count 7.5 10^3/uL (3.5-10.8)
[2018-11-12 14:22] LABS: INR 1.03 (0.82-1.09)
[2018-11-12 14:28] LABS: Albumin 4.1 g/dL (3.2-5.2); Albumin/Globulin Ratio 1.7 (1-3); BUN/Creatinine Ratio 12.2 (8-20); Calcium 9.6 mg/dL (8.6-10.3); EGFR African American 85.8 (>60); EGFR Non-African American 70.9 (>60); Globulin 2.4 g/dL (2-4); Potassium 3.8 mmol/L (3.5-5.0); Total Bilirubin 0.3 mg/dL (0.2-1.0); Total Protein 6.5 g/dL (6.4-8.9)
--- OUTSIDE RECORDS SUMMARY | 2018-11-12 14:30 | XMS REPORT | Continuity of Care Document ---
:1955 External Reference #:[id number] Author Name Siena Larson N.P. (transmitted by agent of provider Lisa Painter) Address [address], [place] [address] Care Team Providers Name Role Phone Sveta Patel MD - Internal Care Team Information Tap Out Operator [phone] Medicine Problems Active Problems Provider Date Anxiety state [...] Sims MD Onset: 04/25/2018 the shoulder region Social History Type Date Description Comments Sex Unknown ETOH Use Currently consumes alcohol 0 - 1 glasses Recreational Drug Use Never Used Drugs Tobacco Use Start: Unknown Light tobacco smoker (10 or fewer cigarettes/day) Smoking Status Reviewed: 11/03/18 Light tobacco smoker (10 or fewer cigarettes/day) Exercise Type/Frequency Exercises rarely Allergies, Adverse Reactions, Alerts Active Allergies Reaction Severity Comments Date Zithromax lorrie syndrome 10/13/2015 Sulfa Antibiotics rash 10/13/2015 Estrogens rash 10/13/2015 Medications Active Medications SIG Qnty Indications Ordering Date Provider Percocet 1 tabs by mouth 40tabs Kail Billie, 10/10/2018 5-325mg every 6 hours as MD Tablets needed pain Cane use for ambulation 1units M25.561 Lindsay Bennett, 07/25/2018 Misc - r knee pain Lenore Escitalopram Oxalate 1 by mouth every 30tabs F32.9 Siena Joиван, 2018 day N.P. 20mg Tablets Bupropion 1 by mouth every 30tabs F32.9 Siena Jon, 06/03/2018 Hydrochloride ER (XL) day N.P. 300mg Tablets ER 24HR Clonazepam take 1 by mouth 60tabs F32.9 Siena Joиван, 04/25/2018 1mg Tablets three times a day N.P. Ventolin HFA 1 to 2 inhalations 18units J45.31 Siena Joиван, 03/31/2018 every 4 hours as N.P. 108(90Base) mcg/Act needed Aerosol Amlodipine Besylate 1 by mouth every 90tabs I10 Siena Marsha, 03/31/2018 5mg day N.P. Tablets Symbicort 2 puffs by mouth 18gm J44.1 Siena Joиван, 12/19/2017 twice a day N.P. 160-4.5mcg/Act Aerosol Hydrocodone-Acetamino one tablet by 60tabs M25.561 Siena Varиван, 2017 phen mouth every 6 N.P. 5-325mg Tablets hours as needed for pain Ipratropium 1 vial in 180ml J44.1 Siena Marsha, 12/12/2017 Tererro/Albuterol nebulizer three N.P. Sulfate times a day as needed for asthma 0.5-2.5(3)mg/3ML Solution Nebulizer use three times a 1units J44.1 Siena Marsha, 12/12/2017 Device day as needed N.P. Triamcinolone apply thin film 45units H60.541 Siena Larson, 10/13/2015 Acetonide twice daily N.P. 0.1% Cream Tylenol Extra 2 by mouth as Unknown Strength needed 500mg Tablets History Medications Zolpidem Tartrate one by mouth at 30tabs G47.00 James Thomas NP 09/02/2018 - bedtime as 11/03/2018 5mg Tablets needed sleep Gabapentin 1 by mouth at 30caps G47.00 Siena Marsha, 07/25/2018 - 300mg bedtime N.P. 08/25/2018 Capsules Medications Administered in Office Medication SIG Qnty Indications Ordering Provider Date Triamcinolone (Kenalog) Adarsh Sims MD 04/25/2018 Injection Inj, Regadenoson, 0.1 MG Kody Cruz, DO FAC 01/08/2017 Injection Technetium TC 99M Kody Cruz, DO FACC 01/08/2017 Tetrofosmin, Per Unit Dose Up To 40 Millicuries Injection Depomedrol 40MG Lindsay Bennett M.D. 06/08/2016 Injection Depomedrol 80MG Mega Hanks M.D. 08/08/2012 Injection Immunizations CPT Code Status Date Vaccine Reaction Lot # 95116 Given 01/01/2017 Tdap - No immediate [id number] Tetanus/Diptheria/Acellular reaction... Pertussis 24080 Given 01/01/2017 Influenza Virus Vaccine, No immediate [id number] Quadrivalent, Split, reaction... Preservative Free Vital Signs Date Vital Result Comment 11/03/2018 11:06am Height 62 inches 5'2" Weight 148.00 lb Heart Rate 72 /min BP Systolic 155 mmHg BP Diastolic 99 mmHg Body Temperature 96.9 F O2 % BldC Oximetry 99 % BMI (Body Mass Index) 27.1 kg/m2 10/10/2018 3:21pm Height 62 inches 5'2" Weight 152.00 lb Heart Rate 64 /min BP Systolic 126 mmHg BP Diastolic 84 mmHg Body Temperature 98.2 F BMI (Body Mass Index) 27.8 kg/m2 Results Test Date Facility Test Result H/L Range Note Type & Screen 09/23/2018 [facility] Patient Blood A Positive [address] [place] [address] [phone] Antibody Screen NEGATIVE Laboratory test 09/23/2018 [facility] Partial 33.7 Normal 26.0 -38.[address] [address] Time PTT [phone] Inr/Protime 09/23/2018 [facility] Inr 0.96 Normal 0.82-1.[address] [place] [address] [phone] Laboratory test 09/19/2018 [facility] Nuclear AB <1:[address] (Charla) By (Negative) [place] [address] Ifa Igg [phone] Erythrocyte Sed Rate 6 mm/Hr Normal 0-29 C Reactive Protein 4.31 mg/L Normal <8.01 Comp Metabolic 09/19/2018 [facility] Sodium 140 mmol/L Normal 135-[address] [place] [address] [phone] Potassium 4.5 mmol/L Normal 3.5-5.0 Chloride 105 mmol/L Normal 101-111 Co2 Carbon Dioxide 28 mmol/L Normal 22-32 Anion Gap 7 mmol/L Normal 2-11 Glucose 105 mg/dL High 70-100 Blood Urea Nitrogen 15 mg/dL Normal 6-24 Creatinine 0.62 mg/dL Normal 0.51-0.95 BUN/Creatinine Ratio 24.2 High 8-20 Calcium 9.9 mg/dL Normal 8.6-10.3 Total Protein 6.5 g/dL Normal 6.4-8.9 Albumin 4.2 g/dL Normal 3.2-5.2 Globulin 2.3 g/dL Normal 2-4 Albumin/Globulin Ratio 1.8 Normal 1-3 Total Bilirubin 0.40 mg/dL Normal 0.2-1.0 Alkaline Phosphatase 66 U/L Normal 34-104 Alt 24 U/L Normal 7-52 Ast 20 U/L Normal 13-39 Egfr Non- 97.9 >60 Egfr 118.4 >60 4 CBC Auto 09/19/2018 [facility] White Blood 7.3 10^3/uL Normal 3.5-10.[address] [place] [address] [phone] Red Blood Count 4.61 10^6/uL Normal 3.70-4.87 Hemoglobin 15.4 g/dL Normal 12.0-16.0 Hematocrit 44 % Normal 35-47 Mean Corpuscular Volume 96 fL Normal 80-97 Mean Corpuscular Hemoglobin 33 pg High 27-31 Mean Corpuscular HGB Conc 35 g/dL Normal 31-36 Red Cell Distribution Width 13 % Normal 10-15 Platelet Count 250 10^3/uL Normal 150-450 Mean Platelet Volume 8.4 fL Normal 7.4-10.4 Abs Neutrophils 4.1 10^3/uL Normal 1.5-7.7 Abs Lymphocytes 2.7 10^3/uL Normal 1.0-4.8 Abs Monocytes 0.5 10^3/uL Normal 0-0.8 Abs Eosinophils 0.1 10^3/uL Normal 0-0.6 Abs Basophils 0.0 10^3/uL Normal 0-0.2 Abs Nucleated RBC 0.0 10^3/uL Granulocyte % 55.7 % Lymphocyte % 36.3 % Monocyte % 6.6 % Eosinophil % 0.7 % Basophil % 0.7 % Nucleated Red Blood Cells % 0.1 Urinalysis Profile 09/19/2018 [facility] Urine Color Straw [address] [place] [address] [phone] Urine Appearance Clear Urine Specific [place] 1.008 Low 1.010-1.030 Urine pH 6.0 Normal 5-9 Urine Urobilinogen Negative Negative Urine Ketones Negative Negative Urine Protein Negative Negative Urine Leukocytes Negative Negative Urine Blood Negative Negative Urine Nitrite Negative Negative Urine Bilirubin Negative Negative Urine Glucose Negative Negative 1 . 2 Standard intensity warfarin therapeutic range: 2.0-3.0 High intensity warfarin therapeutic range: 2.5-3.5 3 <1:80 (Negative) REFERENCE VALUE <1:80 (Negative) Test Performed by: [facility] [address] [place] [address] 4 Because ethnic data is not always [...] 15-29 5 Kidney failure <15 (or dialysis) Procedures Date Code Description Status 09/26/2018 59279 TKR Total Knee Replacement Completed 09/26/2018 43677 TKR Total Knee Replacement Completed 09/17/2018 95569 EKG Tracing & Interpretation Completed 09/17/2018 61948 EKG Tracing & Interpretation Completed 07/25/2018 33127 Inject/Drain Joint/Bursa Major W/O US Completed 05/18/2016 47249734 Mammogram Completed 03/11/2009 940416615 Diabetic Retinal Eye Exam Completed 03/11/1995 30094174 Colonoscopy Completed Medical Devices Description No Information Available Encounters Type Date Location Provider Dx Diagnosis Office Visit 09/27/2018 [facility] Z47.1 Aftercare 10:14a Assoc,nikki Aguilar, ENGINEER EXHAUSTER following joint Hospitalists replacement surgery Z96.651 Presence of right artificial knee joint I10 Essential (primary) hypertension F41.9 Anxiety disorder, unspecified E03.9 Hypothyroidism, unspecified J44.9 Chronic obstructive pulmonary disease, unspecified F17.200 Nicotine dependence, unspecified, uncomplicated Office Visit 09/26/2018 10:14a [facility] Z47.1 Aftercare nikki Corea, IVORY following joint Hospitalists replacement surgery Z96.651 Presence of right artificial knee joint I34.9 Nonrheumatic mitral valve disorder, unspecified G45.9 Transient cerebral ischemic attack, unspecified F41.9 Anxiety disorder, unspecified I21.9 Acute myocardial infarction, unspecified 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 preprocedural Ccmob examination M17.11 Unilateral primary osteoarthritis, right knee F33.9 Major depressive disorder, recurrent, unspecified I10 Essential (primary) hypertension E11.9 Type 2 diabetes mellitus without complications J45.30 Mild persistent asthma, uncomplicated Office Visit 09/02/2018 3:40p [facility] Internal Siena Jon, F33.9 Major depressive Medicine - N.P. disorder, Ccmob recurrent, unspecified G47.00 Insomnia, unspecified Office Visit 08/25/2018 10:00a [facility] Internal Siena Varn, F33.9 Major depressive Medicine - N.P. disorder, Ccmob recurrent, unspecified R41.0 Disorientation, unspecified R26.0 Ataxic gait M25.561 Pain in right knee G47.00 Insomnia, unspecified Z12.31 Encntr screen mammogram for malignant neoplasm of breast Office Visit 07/25/2018 10:40a [facility] Internal Siena Varn, F33.9 Major depressive Medicine - N.P. disorder, Ccmob recurrent, unspecified G47.00 Insomnia, unspecified Office Visit 06/17/2018 10:00a [facility] Internal Siena Sandron, F33.9 Major depressive Medicine - N.P. disorder, Ccmob recurrent, unspecified Office Visit 06/03/2018 10:00a [facility] Internal Siena Sandron, F32.9 Major depressive Medicine - N.P. disorder, single Ccmob episode, unspecified Office Visit 05/20/2018 11:00a [facility] Internal Siena Varn, F32.9 Major depressive Medicine - N.P. disorder, single Ccmob episode, unspecified Assessments Date Code Description Provider 11/03/2018 F33.9 Major depressive disorder, Siena Varn, N.P. recurrent, unspecified 10/10/2018 Z47.1 Aftercare following joint Lindsay Bennett M.D. replacement surgery 10/10/2018 Z96.651 Presence of right artificial knee Lindsay Bennett M.D. joint 10/10/2018 Z47.1 Aftercare following joint Lindsay Bennett M.D. replacement surgery 09/27/2018 Z47.1 Aftercare following joint Staci Aguilar, ENGINEER EXHAUSTER replacement surgery 09/27/2018 Z47.1 Aftercare following joint Vicenta Nair RPA-Sg replacement surgery 09/27/2018 Z96.651 Presence of right artificial knee Staci Aguilar, ENGINEER EXHAUSTER joint 09/27/2018 Z96.651 Presence of right artificial knee Vicenta Lisick, RPA-C joint 09/27/2018 I10 Essential (primary) hypertension Staci Shortle, ENGINEER EXHAUSTER 09/27/2018 F41.9 Anxiety disorder, unspecified Staci Shortle, ENGINEER EXHAUSTER 09/27/2018 E03.9 Hypothyroidism, unspecified Staci Shortle, ENGINEER EXHAUSTER 09/27/2018 J44.9 Chronic obstructive pulmonary Staci Shortle, ENGINEER EXHAUSTER disease, unspecified 09/27/2018 F17.200 Nicotine dependence, unspecified, Staci Shortmaru, ENGINEER EXHAUSTER uncomplicated 09/26/2018 Z47.1 Aftercare following joint Staci Shortle, ENGINEER EXHAUSTER replacement surgery 09/26/2018 M17.11 Unilateral primary osteoarthritis, [employer] HRaissa Harper , RPA-C right knee 09/26/2018 Z96.651 Presence of right artificial knee Staci Shortle, ENGINEER EXHAUSTER joint 09/26/2018 M17.11 Unilateral primary osteoarthritis, Lindsay Bennett M.D. 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 09/19/2018 M17.31 Unilateral post-traumatic Lindsay Bennett M.D. osteoarthritis, right knee 09/17/2018 Z01.818 Encounter for other preprocedural Siena Larson, N.P. examination 09/17/2018 I10 Essential (primary) hypertension Janay Graff MD 09/17/2018 M17.11 Unilateral primary osteoarthritis, Siena Varn, N.P. right knee 09/17/2018 F33.9 Major depressive disorder, Siena Varn, N.P. recurrent, unspecified 09/17/2018 I10 Essential (primary) hypertension Siena Varn, N.P. 09/17/2018 E11.9 Type 2 diabetes mellitus without Siena Varn, N.P. complications 09/17/2018 J45.30 Mild persistent asthma, Siena Varn, N.P. uncomplicated 09/02/2018 F33.9 Major depressive disorder, Siena Varn, N.P. recurrent, unspecified 09/02/2018 G47.00 Insomnia, unspecified Siena Varn, N.P. 08/25/2018 F33.9 Major depressive disorder, Siena Varn, N.P. recurrent, unspecified 08/25/2018 R41.0 Disorientation, unspecified Siena Varn, N.P. 08/25/2018 R26.0 Ataxic gait Siena Varn, N.P. 08/25/2018 M25.561 Pain in right knee Siena Varn, N.P. 08/25/2018 G47.00 Insomnia, unspecified Siena Varn, N.P. 08/25/2018 Z12.31 Encounter for screening mammogram Siena Varn, N.P. for malignant neoplasm of 08/12/2018 M25.561 Pain in right knee Lindsay Bennett M.D. 08/12/2018 M25.461 Effusion, right knee Lindsay Bennett M.D. 08/12/2018 M17.11 Unilateral primary osteoarthritis, Lindsay Bennett M.D. right knee 07/25/2018 M25.561 Pain in right knee Lindsay Bennett M.D. 07/25/2018 F33.9 Major depressive disorder, Siena Varn, N.P. recurrent, unspecified 07/25/2018 M25.461 Effusion, right knee Lindsay Bennett M.D. 07/25/2018 M25.561 Pain in right knee Lindsay Bennett M.D. 07/25/2018 M17.31 Unilateral post-traumatic Lindsay Bennett M.D. osteoarthritis, right knee 07/25/2018 G47.00 Insomnia, unspecified Siena Larson, N.P. 07/25/2018 M25.461 Effusion, right knee Lindsay Bennett M.D. 07/25/2018 M17.31 Unilateral post-traumatic Lindsay Bennett M.D. osteoarthritis, right knee 06/17/2018 F33.9 Major depressive disorder, Siena Varn, N.P. recurrent, unspecified 06/03/2018 F32.9 Major depressive disorder, single Siena Varn, N.P. episode, unspecified 05/20/2018 F32.9 Major depressive disorder, single Siena Varn, N.P. episode, unspecified Plan of Treatment Future Appointment(s):12/08/2018 3:20 pm - Siena Larson N.P. at [facility]11/14/2018 11:15 am - Lindsay Bennett M.D. at [facility]11/03/2018 - Siena Larson N.Rodrick.F33.9 Major depressive disorder, recurrent, unspecifiedComments:I am sorry you have more stress in your life. I have referred you to Nurse PractitionerGila for medication management.Referral:Gila Rosas N.P., Nurse PractitionerFollow up:F/U 1 month Functional Status Description No Information Available Mental Status Description No Information Available Referrals Refer to Reason for Referral Status Appt Date Gila Rosas N.P. Patient has severe depression and PTSD. Has Created been on Escitalopram and Bupropion, along with Clonazepam but is not improving. She is seeing a counselor weekly. I have referred her for medication management. Thank you for seeing this very pleasant patient. [address] [place] [phone] Claire Palomares MD Patient with severe depression, anxiety, and Sent PTSD. She is seeing Shahla Lang for counseling and is on antidepressants but is not doing well. Referred for evaluation and treatment. [address] [place] [id number] [phone]
--- NOTE | 2018-11-12 17:09 | ED ---
Complex/Multi-Sys Presentation - HPI Summary HPI Summary: Patient is a 63 y/o F presenting to ED with complaints of difficulty with speech , dizziness, right-sided weakness, difficulty with memory and ambulation, and tremors. Sx are reported to have onset in the morning of 11/11/18. She states that overall she does not, "feel right" Patient reports Hx of stroke 10 years ago, "caused by stress". She states that she has numerous stressful situations/ significant life changes going on in her life currently, such as the hospitalization of her brother, the recent of another brother, health issues with her sister, and her recent snf, which occurred yesterday. She states that she has been feeling "overwhelmed" as a result, but denies SI/ HI. Patient denies visual changes but endorses intermittent SOB, for which she takes albuterol treatment. N/V over the past month is endorsed as well. She states that she is going to see her PCP for these Sx in the next few days. Hx of ulcer is reported. Patient had previously been taking meloxicam but was taken off of this. No diarrhea, no urinary Sx are reported. She denies change in appetite or fluid intake. Hx of PTSD, anxiety, major depression is noted. Patient is also on Xanax, Bupropion, Klonopin, Lexapro. Home medications and allergies are reviewed. - History Of Current Complaint Chief Complaint: EDNeurologicalDeficit Time Seen by Provider: 11/12/18 16:12 Hx Obtained From: Patient Onset/Duration: Lasting Days, Still Present Timing: Days Aggravating Factor(s): stress Associated Signs And Symptoms: Positive: Dizziness, Weakness - right sided, SOB , Nausea, Vomiting, Other - positive - difficulty with speech, difficulty with memory and ambulation, tremors; negative - SI/HI, visual changes, urinary Sx, changes in appetite or fluid intake. Negative: Diarrhea - Allergies/Home Medications Allergies/Adverse Reactions: Allergies Allergy/AdvReac Type Severity Reaction Status Date / Time latex Allergy Severe Swelling Verified 09/26/18 08:35 azithromycin [From Zithromax] Allergy SYDNEE Verified 09/26/18 08:35 SYNDROME Estrogens Allergy RASH AND Verified 09/26/18 08:35 SWELLING Sulfa (Sulfonamide Allergy Rash Verified 09/26/18 08:35 Antibiotics) Home Medications: Home Medications Acetaminophen TAB* [Tylenol TAB*] 500 mg PO Q4H PRN 11/12/18 [History Confirmed 11/12/18] Hydrocodone/Acetaminophen [Hydrocodone/Acetaminophen 5-325 mg] 1 tab PO Q8HR PRN 11/12/18 [History Confirmed 11/12/18] Oxycodone HCl/Acetaminophen [Percocet] 1 tab PO Q8HR PRN 11/12/18 [History Confirmed 11/12/18] PMH/Surg Hx/FS Hx/Imm Hx Endocrine/Hematology History: Reports: Hx Thyroid Disease - HX OF PARTIAL THYROIDECTOMY FOR TUMOR Denies: Hx Diabetes, Hx Anemia Cardiovascular History: Reports: Hx Hypertension - ON MEDICATION FOR Denies: Other Cardiovascular Problems/Disorders Respiratory History: Reports: Hx Asthma Denies: Other Respiratory Problems/Disorders GI History: Reports: Hx Hiatal Hernia - NOTED 1987 DURING A SCOPE, Other GI Disorders - HX OF ESOPHAGEAL STRICTURE-2018 HAD DILITATION FOR Denies: Hx Jaundice History: Denies: Other Problems/Disorders Musculoskeletal History: Reports: Hx Arthritis - BILATERAL, Other Musculoskeletal History - LEFT SHOULDER GANGLIA-RECEIVED SHOT FOR-SOME IMPROVEMENT Sensory History: Reports: Hx Contacts or Glasses - GLASSES-READING Denies: Hx Hearing Aid Opthamlomology History: Reports: Hx Contacts or Glasses - GLASSES-READING Neurological History: Reports: Other Neuro Impairments/Disorders - PTSD- SEES A COUNSLER FOR Psychiatric History: Reports: Hx Anxiety - ON MEDICAITON FOR, Hx Depression - ON MEDICATION FOR, Hx Post Traumatic Stress Disorder - Cancer History Cancer Type, Location and Year: cervical - Surgical History Surgery Procedure, Year, and Place: partial thyroidectomy-[facility]. ESOPHAGEAL STRETCHING-[facility]. appendectomy, tracheostomy-AGE 20 MONTHS-[place], cervical bx-[facility], tubal LIGATION. CARPAL TUNNEL BILATERAL-[facility]. RIGHT KNEE MENISCUS SURGERY Hx Anesthesia Reactions: No Infectious Disease History: No Infectious Disease History: Denies: Traveled Outside the [place] in Last 30 Days - Family History Known Family History: Positive: Cardiac Disease, Seizure Disorder - Social History Alcohol Use: Occasionally Substance Use Type: Reports: None Smoking Status (MU): Light Every Day Tobacco Smoker Type: Cigarettes Amount Used/How Often: 1-3 CIGARETTES PER DAY X 30 YEARS OFF AN ON Have You Smoked in the Last Year: Yes Review of Systems Constitutional: Other - positive - tremors Eyes: Other - negative - visual changes Positive: Shortness Of Breath Gastrointestinal: Other - negative - changes in appetite or fluid intake Positive: Vomiting, Nausea. Negative: Diarrhea Positive: no symptoms reported - no urinary Sx reported Neurological: Other - positive - difficulty with speech, dizziness, difficulty with memory and ambulation Positive: Weakness - right-sided Psychological: Other - positive - feeling "overwhelmed"; negative - SI/HI All Other Systems Reviewed And Are Negative: Yes Physical Exam - Summary Physical Exam Summary: General: Well-developed, Obese female. No acute distress. HEENT: Normocephalic, Atraumatic. Eyes: Conjuctiva normal, PERRL. Ears: TMs within normal limits. Nares: (-) discharge, (-) erythema. Oropharynx: Clear, mucous membranes moist, (-) exudates. Neck: Soft, FROM, (-) lymphadenopathy, (-) thyromegaly, (-) JVD. Cardiovascular: Normal sinus rhythm, (-) murmur. Lungs: Clear to auscultation bilaterally (-) wheezes, (-) rales, (-) rhonchi. Abdomen: Soft, non-tender, non-distended, (-) organomegaly, normal bowel sounds. Back: (-) CVA tenderness Extremities: No edema. Skin: Warm, dry, (-) rash. Neuro: Alert and oriented x3. Patient has occasional tremor, no focal weakness, no deficits in sensation. Patient has intermittent slurring of speech. GCS 15. Psychiatric: Mood normal, affect normal. Triage Information Reviewed: Yes Vital Signs On Initial Exam: Initial Vitals Temp Pulse Resp BP Pulse Ox 98.6 F 100 18 147/96 97 11/12/18 13:47 11/12/18 13:47 11/12/18 13:47 11/12/18 13:47 11/12/18 13:47 Vital Signs Reviewed: Yes Diagnostics - Vital Signs Vital Signs Temp Pulse Resp BP Pulse Ox 11/12/18 16:08 79 17 128/83 98 11/12/18 16:00 16 11/12/18 15:29 77 18 99 11/12/18 13:47 98.6 F 100 18 147/96 97 - Laboratory Lab Results: Lab Results 11/12/18 11/12/18 11/12/18 Range/Units 14:01 14:01 14:01 WBC 7.5 (3.5-10.8) 10^3/uL RBC 4.12 (3.70-4.87) 10^6 /uL Hgb 13.5 (12.0-16.0) g/dL Hct 39 (35-47) % MCV 95 (80-97) fL MCH 33 H (27-31) pg MCHC 35 (31-36) g/dL RDW 14 (10-15) % Plt Count 329 (150-450) 10^3/uL MPV 7.2 L (7.4-10.4) fL Neut % (Auto) 57.9 % Lymph % (Auto) 33.5 % [place] % (Auto) 7.1 % Eos % (Auto) 0.8 % Baso % (Auto) 0.7 % Absolute Neuts (auto) 4.4 (1.5-7.7) 10^3/ul Absolute Lymphs (auto) 2.5 (1.0-4.8) 10^3/ul Absolute Monos (auto) 0.5 (0-0.8) 10^3/ul Absolute Eos (auto) 0.1 (0-0.6) 10^3/ul Absolute Basos (auto) 0.1 (0-0.2) 10^3/ul Absolute Nucleated RBC 0.0 10^3/ul Nucleated RBC % 0.0 INR (Anticoag Therapy) 1.03 (0.82-1.09) Sodium 139 (135-145) mmol/L Potassium 3.8 (3.5-5.0) mmol/L Chloride 106 (101-111) mmol/L Carbon Dioxide 23 (22-32) mmol/L Anion Gap 10 (2-11) mmol/L BUN 10 (6-24) mg/dL Creatinine 0.82 (0.51-0.95) mg/dL Est GFR ( Amer) 85.8 (>60) Est GFR (Non-Af Amer) 70.9 (>60) BUN/Creatinine Ratio 12.2 (8-20) Glucose 116 H (70-100) mg/dL Calcium 9.6 (8.6-10.3) mg/dL Total Bilirubin 0.30 (0.2-1.0) mg/dL AST 13 (13-39) U/L ALT 13 (7-52) U/L Alkaline Phosphatase 82 (34-104) U/L Troponin I 0.00 (<0.04) ng/mL Total Protein 6.5 (6.4-8.9) g/dL Albumin 4.1 (3.2-5.2) g/dL Globulin 2.4 (2-4) g/dL Albumin/Globulin Ratio 1.7 (1-3) Result Diagrams: 11/12/18 14:01 11/12/18 14:01 Lab Statement: Any lab studies that have been ordered have been reviewed, and results considered in the medical decision making process. - EKG 1351 Cardiac Rate: NL - rate of 84 BPM EKG Rhythm: Sinus Rhythm Summary of EKG Findings: EKG showed NSR with rate of 84 BPM, no STEMI. Re-Evaluation - Re-Evaluation First Eval Re-Evaluation Time: 17:52 Comment: Discussed possible MHE for the patient, but patient declines. She states that she already speaks to a therapist once a week and reports that she only wants to go home and sleep in her bed. Patient to be discharged to home and will follow up with PCP within three days. Complex Multi-Symp Course/Dx Course Of Treatment: Patient is a 63 y/o F presenting to ED with complaints of difficulty with speech, dizziness, right-sided weakness, difficulty with memory and ambulation, and tremors. Sx are reported to have onset in the morning of 11/11. She states that overall she does not, "feel right" Patient reports Hx of stroke 10 years ago, "caused by stress". She states that she has numerous stressful situations/significant life changes going on in her life currently, such as the hospitalization of her brother, the recent of another brother , health issues with her sister, and her recent snf, which occurred yesterday. She states that she has been feeling "overwhelmed" as a result, but denies SI/HI. EKG showed NSR with rate of 84 BPM, no STEMI. On physical exam, patient is noted to have intermittent slurring of speech and an occasional tremor. There is no focal weakness or loss of sensation. Bloodwork was obtained. Abnormal values include MCH 33, MPV 7.2, glucose 116. First and second trop were negative. Discussed possible MHE for the patient, but patient declines. She states that she already speaks to a therapist once a week and reports that she only wants to go home and sleep in her bed. Patient to be discharged to home and will follow up with PCP within three days. - Diagnoses Provider Diagnoses: Stress reaction Discharge ED - Sign-Out/Discharge Documenting (check all that apply): Patient Departure - discharge Patient Received Moderate/Deep Sedation with Procedure: No - Discharge Plan Condition: Stable Disposition: HOME Patient Education Materials: Stress (ED) Referrals: Siena Larson NP [Primary Care Provider] - 3 Days Additional Instructions: Please follow up with your primary care physician within three days. Please return to ED for any new or worsening symptoms. - Billing Disposition and Condition Condition: STABLE Disposition: Home - Attestation Statements Document Initiated by Braden: Yes Documenting Scribe: MARINE PLEITEZ Provider For Whom Braden is Documenting (Include Credential): LUIS CAROLINA MD Scribe Attestation: MARINE Bravo, scribed for LUIS CAROLINA MD on 11/12/18 at 1834. Scribe Documentation Reviewed: Yes Provider Attestation: The documentation as recorded by the MARINE morgan accurately reflects the service I personally performed and the decisions made by me, LUIS CAROLINA MD Status of Scribe Document: Viewed
[2018-11-12 18:04] VITALS: BP 142/87
== END 2018-11-12 18:07 | disposition home or self-care (01) ==
LOC: ED 13:44
DX: F43.9 Reaction to severe stress, unspecified (principal); E07.9 Disorder of thyroid, unspecified; I10 Essential (primary) hypertension; J45.909 Unspecified asthma, uncomplicated; F41.9 Anxiety disorder, unspecified; F32.9 Major depressive disorder, single episode, unspecified; F43.10 Post-traumatic stress disorder, unspecified; F17.210 Nicotine dependence, cigarettes, uncomplicated; Z79.899 Other long term (current) drug therapy; Z88.2 Allergy status to sulfonamides; Z88.1 Allergy status to other antibiotic agents; Z91.040 Latex allergy status
CPT/HCPCS: 36415; 80053; 84484; 85025; 85610; 93005; 99283